=== PATIENT | female | born 1990 | race Caucasian/White ===

== ENCOUNTER → 2016-06-14 | Outpatient (CLI) | payer MEDICAID ==
[~2016-06-14] MED LIST: ACET1TAB86 PO; ACET650T10 PR; AMOX500T PO; CLON.1 PO; CLON.5 PO; CLON0.5T PO; CLOT1CRE23 VAGINAL; FERR325T PO; HYDR1CRE TOP; IBUP-232 PO; IBUP600 PO; ORTH0.35 PO; PERI8.6T PO; POLY255S PO; PRENCAP6 PO; PRENTAB44 PO; RANI150C PO; SUBO8MIS SL; TRICTAB PO; WELL150T PO; ZOFR4TAB PO; ZOLO25TA PO
== END ==
LOC: HPND 11:02
PROVIDERS: ATTEND Family Medicine
DX: O09.30 Supervision of pregnancy with insufficient antenatal care, unspecified trimester (principal)
CPT/HCPCS: 76805

== ENCOUNTER → 2016-07-18 | Outpatient (CLI) | payer MEDICAID ==
[~2016-07-18] MED LIST changes: -ACET650T10 PR; -CLON.1 PO; -HYDR1CRE TOP; -IBUP600 PO; -ORTH0.35 PO; -PERI8.6T PO; -POLY255S PO; -PRENCAP6 PO; -WELL150T PO; -ZOFR4TAB PO
== END ==
LOC: HPND 13:54
PROVIDERS: ATTEND Family Medicine
DX: O40.3XX0 Polyhydramnios, third trimester, not applicable or unspecified (principal); O09.33 Supervision of pregnancy with insufficient antenatal care, third trimester; Z3A.31 31 weeks gestation of pregnancy
CPT/HCPCS: 76816

== ENCOUNTER 2016-07-24 12:48 | Emergency (ER) | payer MEDICAID ==
[~2016-07-24] VITALS: Ht 162.6 cm; Wt 79.0 kg
[~2016-07-24 12:48] MED LIST changes: -ACET1TAB86 PO; -AMOX500T PO; -CLON.5 PO; -CLON0.5T PO; -FERR325T PO; -IBUP-232 PO; -SUBO8MIS SL; -TRICTAB PO; -ZOLO25TA PO
[2016-07-24 12:53] VITALS: BP 96/65; PULSE 80; RESP 16; TEMP 98.3; O2SAT 97
--- NOTE | 2016-07-24 13:06 | PD ---
HPI Chief Complaint: Cold / Flu Symptoms Time Seen by Provider: 13:06 Travel History International Travel<30 days: No Contact w/Intl Traveler<30days: No Traveled to known affect area: No History of Present Illness HPI 25 year old 33 week female presents to the ED for evaluation of 3-4 week history of bilateral ear pain,dulled hearing, clear rhinorrhea, nonproductive cough, sore throat. Patient denies fever or chills, headache, SOB , N, V. She endorses sick contacts, stating that her daughter brought this illness home from daycare. Patient endorses good movement, close follow- up with the [facility] EDUCATIONAL AIDE. She's been treating at home with Afmayur with no improvement of her symptoms. PFSH Past Medical History Hx Anticoagulant Therapy: No Blood Disorders: No Anxiety: Yes Depression: Yes Cancer: No Cardiovascular Problems: No Chemotherapy: No Cerebrovascular Accident: No Diabetes: No Diminished Hearing: No Endocrine: No Gastrointestinal Disorders: No Genitourinary: No Immune Disorder: No Implanted Vascular Access Dvce: No Musculoskeletal: No Neurologic: No Psychiatric: Yes Reproductive: No Respiratory: No Immunizations Current: Yes Radiation Therapy: No ?: LMP: 03/04/16 Menopausal: No : 2 Para: 1 Miscarriage: 1 : 1 Past Surgical History Abdominal Surgery: No Cardiac Surgery: No Ear Surgery: No Endocrine Surgery: No Eye Surgery: No Genitourinary Surgery: No Gynecologic Surgery: No Hysterectomy: No Neurologic Surgery: No Oral Surgery: No Thoracic Surgery: No Other Surgery: No Social History Alcohol Use: No Tobacco Use: Yes (3-4 cigarettes a day during ) Substance Use: No Allergies-Medications (Allergen,Severity, Reaction): Coded Allergies: No Known Allergies (Verified , 07/24/16) Reported Meds & Prescriptions Reported Meds & Active Scripts Active Amoxicillin 500 Mg Tab 500 Mg PO BID 5 Days Review of Systems Except as stated in HPI: all other systems reviewed are Neg Physical Exam Narrative GENERAL: Well-nourished, well-developed white female in no acute distress. SKIN: Warm and dry. HEAD: Normocephalic. Atraumatic. EYES: No scleral icterus. No injection or drainage. PERRLA. EOMI. ENT: Tympanic membranes pearly vazquez without loss of bony landmarks. Left tympanic membrane erythematous, mild bulging. No loss of landmarks. External canals without erythema or exudates bilaterally. Nasal mucosa is moist. Oropharynx mild posterior erythema. No edema or exudate. Airway patent. Uvula midline. NECK: Supple, trachea midline. No JVD or lymphadenopathy. CARDIOVASCULAR: Regular rate and rhythm without murmurs, gallops, or rubs. 2+ DP and radial pulses bilaterally. RESPIRATORY: Breath sounds clear and equal bilaterally. No accessory muscle use. GASTROINTESTINAL: Abdomen gravid, soft, non-tender, nondistended. + Bowel sounds MUSCULOSKELETAL: No cyanosis, or edema. Patient is noted to walk with a normal gait. BACK: Nontender without obvious deformity. No CVA tenderness. Data Data Last Documented VS Vital Signs Date Time Temp Pulse Resp B/P Pulse Ox O2 Delivery O2 Flow Rate FiO2 07/24/16 13:10 18 97 Room Air 07/24/16 12:53 98.3 80 96/65 Orders Group A Rapid Strep Screen (07/24/16 12:59) Strep Culture (Group A) (07/24/16 13:15) MDM Medical Decision Making Medical Screen Exam Complete: Yes Emergency Medical Condition: Yes Differential Diagnosis Pharyngitis versus strep pharyngitis versus otitis media versus otitis externa versus viral syndrome versus other Narrative Course 25 year old 33 week female presents to the ED for evaluation of 3-4 week history of bilateral ear pain,dulled hearing, clear rhinorrhea, nonproductive cough, sore throat. Patient denies fever or chills, headache, SOB , N, V. endorses good movement and close follow-up by the audit clerk. Vitals reviewed. Physical exam reveals a nontoxic-appearing white female in no acute distress. Left tympanic membrane mild to moderately erythematous with mild bulging. No loss of landmarks. External canals without erythema or exudates bilaterally. Oropharynx with mild posterior erythema. No LAD. Rapid strep swab negative. Patient was instructed to discontinue use of Afrin. I educated her about the rebound effects of the medication. She is prescribed a course of amoxicillin, 500 mg twice a day 5 days. She is instructed to take all medication as prescribed, follow up with the [facility] EDUCATIONAL AIDE. She indicated understanding of the instructions and is agreeable to the care plan. The patient is stable and discharged home.. Diagnosis Primary Impression: Left otitis media with effusion Referrals: Apprentice Plant Attendant Patient Instructions: General Instructions, Otitis Media (ED) Additional Instructions: Rest, hydrate. Take all medication as prescribed, even if symptoms resolved. Follow-up with the audit clerk as discussed. Return to the ED for any urgent or emergent medical condition. Med/Other Pt SpecificInfo: Prescription(s) given Scripts Amoxicillin 500 Mg [id number] Mg PO BID 5 Days Ref 0 Prov:Pradip Chi MD 07/24/16 Disposition: 01 DISCHARGE HOME Condition: Stable Indigo Ma Jul 24, 2016 13:06
[2016-07-24] MEDS ORDERED: AMOX500T PO (13:55)
[2016-08-24] MEDS ORDERED: ZOLO25TA PO (11:11)
[2016-08-24] MEDS ORDERED: CLON0.5T PO (11:11)
[2016-08-24] MEDS ORDERED: FERR325T PO (14:25)
[2016-09-19] MEDS ORDERED: ZOLO25TA PO (10:24)
[2016-09-19] MEDS ORDERED: CLON.5 PO (10:24)
== END 2016-07-24 14:05 | disposition home or self-care (01) ==
LOC: PHEFT 12:48
DX: O26.893 Other specified pregnancy related conditions, third trimester (principal); H65.92 Unspecified nonsuppurative otitis media, left ear; R05 Cough; R07.0 Pain in throat; Z72.0 Tobacco use; Z86.59 Personal history of other mental and behavioral disorders; Z3A.33 33 weeks gestation of pregnancy
CPT/HCPCS: 87081; 87880; 99283

== ENCOUNTER 2016-08-03 13:02 | Emergency (ER) | payer MEDICAID ==
[~2016-08-03 13:02] MED LIST changes: +AMOX500T PO; -CLOT1CRE23 VAGINAL; -PRENTAB44 PO; -RANI150C PO
--- NOTE | 2016-08-03 13:50 | PD ---
HPI Chief Complaint concern for ROM Date Seen: Aug 03, 2016 (Timbo Iqbal MD R2) Travel History International Travel<30 Days: No Contact w/Intl Traveler<30Days: No Known Affected Area: No (Timbo Iqbal MD R2) History of Present Illness HPI Ms. Tucker is a 25-year-old at 34 1/7 weeks (PRAMOD 09/13/2016) who presents with concern for rupture membranes. Patient states she arose from seated position yesterday when noticing a clear spot on chair. Patient states this also occurred later that day and this morning. Patient describes quantity of fluid as "quarter-sized". Patient states that fluid was clear in color. Patient states she does not feel that she urinated on herself. Patient does not report vaginal itching or pain. Patient does not report vaginal bleeding. Patient reports normal movement. Patient reports occasional mild abdominal pain which she thinks are Ronald Lizarraga contractions; patient does not report recent change in frequency of is intermittent pain. Patient does not report headache, vision change, shortness of breath, nausea/vomiting, or leg swelling. Review of records: 07/18 US with normal placenta, HARVEY 19.2 (prior US in w/ HARVEY 23), appropriate growth. 1 hr GTT testing elevated. Labs otherwise wnl. Para: 2 : 3 (Timbo Iqbal MD R2) History Past Medical History Narrative Medical Patient reports her GERD controlled with Zantac and Tums; patient does not report other medical history (Timbo Iqbal MD R2) Obstetric History Obstetric History 002 Patient reports 2 prior vaginal deliveries which were full-term (Timbo Iqbal MD R2) Past Surgical History Surgical History: No Previous Surgery (Timbo Iqbal MD R2) Family History Family History: Negative (Timbo Iqbal MD R2) Social History Narrative Social History Per EMR, patient previously tested positive for benzodiazepines and opiates. Patient reports smoking approximately 57 cigarettes a day; she smoked more prior to . (Timbo Iqbal MD R2) Allergies-Medications (Allergen,Severity, Reaction): Coded Allergies: No Known Allergies (Verified , 08/03/16) Home Meds Active Scripts Amoxicillin 500 Mg [id number] Mg PO BID 5 Days Ref 0 Prov:Pradip Chi MD 07/24/16 Review of Systems General / Constitutional: No: Fever, Chills HENT: No: Headaches Cardiovascular: No: Chest Pain or Discomfort Respiratory: No: Short of Breath Gastrointestinal: No: Nausea, Vomiting Genitourinary: No: Dysuria (Timbo Iqbal MD R2) Physical Exam BP 122/64 HR 92 RR 20 T 97.9 Narrative GENERAL: Well-nourished, well-developed patient. SKIN: Warm and dry. Tattoos present HEAD: Normocephalic and atraumatic. EYES: No scleral icterus. No injection or drainage. ENT: No nasal drainage noted. Mucous membranes pink. Airway patent. NECK: Supple, trachea midline. No lymphadenopathy CARDIOVASCULAR: Regular rate and rhythm without murmurs. Normal perfusion. RESPIRATORY: CTAB; normal rate ABDOMEN/GI: Abdomen soft, non-tender, bowel sounds present, no rebound, no guarding Gravid EXTREMITIES: No cyanosis or edema. NEUROLOGICAL: Awake and alert. Motor and sensory function grossly within normal limits. GENITOURINARY: Uterine Contractions: Irritability; no obvious contractions on CTG FHT's: Category: 1 Baseline: 140 Reactive: Y Variability: Moderate Decels: None (Timbo Iqbal MD R2) Data Data Vital Signs Reviewed: Yes (Timbo Iqbal MD R2) MDM Medical Record Reviewed: Yes Narrative Course / MDM 25-year-old at 34 1/7 weeks (PRAMOD 09/13/2016) -Concern for rupture of membranes due to small quantity of clear vaginal fluid not associated with urination -Category 1 rhythm -Patient does not feel irregular contractions Plan: -Continue EFM -We'll check Amnisure to assess for ROM Interval: Amnisure negative Updated plan: -We'll plan for patient to be discharged home with routine follow-up with Dr. Mckeon due to negative Amnisure results and reassuring rhythm. -Will provide patient with GTT and Hep C labs per request prior to upcoming appointment (Timbo Iqbal MD R2) Diagnosis Diagnosis: Primary Impression: Vaginal discharge Additional Impression: 34 weeks gestation of Disposition: 01 DISCHARGE HOME Condition: Stable Referrals: Agustín Mckeon MD R2 1 week Patient Instructions: General Instructions, Movement (ED), Premature Rupture of Membranes (ED) Collaborating MD Comments Discussed care with Dr Chotas, will discharge with followup in FM clinic (Nasreen Hall MD) Timbo Iqbal MD R2 Aug 03, 2016 13:50 Nasreen Hall MD Aug 03, 2016 18:28
[2016-08-24] MEDS ORDERED: ZOLO25TA PO (11:11)
[2016-08-24] MEDS ORDERED: CLON0.5T PO (11:11)
[2016-08-24] MEDS ORDERED: FERR325T PO (14:25)
[2016-09-19] MEDS ORDERED: ZOLO25TA PO (10:24)
[2016-09-19] MEDS ORDERED: CLON.5 PO (10:24)
== END 2016-08-03 14:36 | disposition home or self-care (01) ==
LOC: HOBED 13:02
DX: N89.8 Other specified noninflammatory disorders of vagina (principal); Z3A.34 34 weeks gestation of pregnancy; R10.9 Unspecified abdominal pain
CPT/HCPCS: 59025; 84112

== ENCOUNTER 2016-08-08 08:22 | Observation (INO) | payer MEDICAID ==
[~2016-08-08] VITALS: Ht 162.6 cm; Wt 79.0 kg
[2016-08-08] VITALS (89 sets, daily range): BP systolic 81–133; BP diastolic 45–78; PULSE 82–124; RESP 14–19; TEMP 97.6–98.1; O2SAT 94–100
[2016-08-08] MEDS ORDERED: TRICTAB PO (08:44)
[2016-08-08] MEDS ORDERED: SODIUM CHLORIDE 0.9% FLUSH 10 ML FLUSH IVF PRN (08:45)
[2016-08-08 09:01] LABS: AUTOMATED NEUTROPHIL # 5.5 TH/MM3 (1.8-7.7); BASOPHIL % 0.2 % (0.0-2.0); EOSINOPHIL # 0.1 TH/MM3 (0-0.4); EOSINOPHIL % 0.9 % (0.0-4.0); HEMO FLAGS DIFF FINAL; LYMPH % 25.1 % (9.0-44.0); LYMPHOCYTE # 2.1 TH/MM3 (1.0-4.8); MEAN CELL VOLUME 86.4 FL (80.0-100.0); MEAN CORPUSCULAR HEMOGLOBIN 28.9 PG (27.0-34.0); MEAN CORPUSCULAR HGB CONC 33.5 % (32.0-36.0); MONO % 7.1 % (0.0-8.0); NEUT % 66.7 % (16.0-70.0); PLATELET COUNT 171 TH/MM3 (150-450); RED BLOOD COUNT 4.17 MIL/MM3 (4.00-5.30); RED CELL DISTRIBUTION WIDTH 13.5 % (11.6-17.2); WHITE BLOOD COUNT 8.3 TH/MM3 (4.0-11.0)
[2016-08-08 09:19] LABS: ANION GAP 7 MEQ/L (5-15); AST (GOT) 16 U/L (15-37); BLOOD UREA NITROGEN 6 MG/DL (7-18); CHLORIDE 105 MEQ/L (98-107); GLOMERULAR FILTRATION RATE 109 ML/MIN (>89); POTASSIUM 3.3 MEQ/L (3.5-5.1); SODIUM (NA) 141 MEQ/L (136-145)
[2016-08-08 09:22] LABS: ACETAMINOPHEN LESS THAN 2.0 MCG/ML (10.0-30.0); ALKALINE PHOSPHATASE 146 U/L (45-117); ALT (GPT) 16 U/L (10-53); TOTAL BILIRUBIN ADULT 0.2 MG/DL (0.2-1.0)
--- NOTE | 2016-08-08 09:52 | PD ---
HPI Chief Complaint: OD/ Ingestion Time Seen by Provider: 08:31 Travel History International Travel<30 days: No Contact w/Intl Traveler<30days: No Traveled to known affect area: No History of Present Illness HPI This is a 25-year-old female who presents to the emergency department 35 weeks having taken 10 tablets of Benadryl prior to arrival in order to try to sleep. She said she take 4 initially but that didn't work so then she took 10 total. She took these around 7 AM. She started to feel lightheaded, dizzy, constant, moderate severity, with some nausea associated called 911. She denies trying to hurt herself. She says she has no history of depression. PFSH Past Medical History Hx Anticoagulant Therapy: No Blood Disorders: No Anxiety: Yes Depression: Yes Cancer: No Cardiovascular Problems: No Chemotherapy: No Cerebrovascular Accident: No Diabetes: No Diminished Hearing: No Endocrine: No Gastrointestinal Disorders: No Genitourinary: No Immune Disorder: No Implanted Vascular Access Dvce: No Musculoskeletal: No Neurologic: No Psychiatric: Yes Reproductive: No Respiratory: No Immunizations Current: Yes Radiation Therapy: No Tetanus Vaccination: < 5 Years Influenza Vaccination: Yes ?: Menopausal: No : 3 Para: 2 Miscarriage: 0 : 0 Past Surgical History Abdominal Surgery: No Cardiac Surgery: No Ear Surgery: No Endocrine Surgery: No Eye Surgery: No Genitourinary Surgery: No Gynecologic Surgery: No Hysterectomy: No Neurologic Surgery: No Oral Surgery: No Thoracic Surgery: No Other Surgery: No Social History Alcohol Use: No Tobacco Use: Yes Substance Use: No Allergies-Medications (Allergen,Severity, Reaction): Coded Allergies: No Known Allergies (Verified , 08/03/16) Reported Meds & Prescriptions Reported Meds & Active Scripts Active Reported ( Vit-Ferrous Fumarate) 1 Tab Tab 1 Tab PO DAILY Review of Systems Except as stated in HPI: all other systems reviewed are Neg Physical Exam Narrative GENERAL:Well appearing, no acute distress SKIN: Focused skin assessment warm and dry. HEAD: Atraumatic. Normocephalic. EYES: Pupils are 3 mm, equal and reactive No injection or drainage. ENT: Moist mucous membranes NECK: Trachea midline. CARDIOVASCULAR: Tachycardic. No murmur appreciated. RESPIRATORY: Clear to auscultation. Breath sounds equal bilaterally. GASTROINTESTINAL: Abdomen soft, non-tender, nondistended. Gravid uterus. MUSCULOSKELETAL: No obvious deformities. NEUROLOGICAL: Awake and alert. No obvious cranial nerve deficits. Moving all extremities. PSYCHIATRIC: Appropriate mood and affect; insight and judgment normal. Data Data Last Documented VS Vital Signs Date Time Temp Pulse Resp B/P Pulse Ox O2 Delivery O2 Flow Rate FiO2 08/08/16 08:49 14 98 Room Air 08/08/16 08:27 98.1 105 118/75 Orders Ed Poc Ultrasound (08/08/16 ) Electrocardiogram (08/08/16 08:40) Complete Blood Count With Diff (08/08/16 08:40) Comprehensive Metabolic Panel (08/08/16 08:40) Urinalysis - C+S If Indicated (08/08/16 08:40) Iv Access Insert/Monitor (08/08/16 08:40) Ecg Monitoring (08/08/16 08:40) Oximetry (08/08/16 08:40) Sodium Chloride 0.9% Flush (Ns Flush) (08/08/16 08:45) Call Poison Control (08/08/16 08:40) Drug Screen, Random Urine (08/08/16 08:40) Alcohol (Ethanol) (08/08/16 08:40) Salicylates (Aspirin) (08/08/16 08:40) Tylenol (Acetaminophen) (08/08/16 08:40) Admit Order (Ed Use Only) (08/08/16 09:43) Labs Laboratory Tests Test 08/08/16 08:45 White Blood Count 8.3 TH/MM3 Red Blood Count 4.17 MIL/MM3 Hemoglobin 12.1 GM/DL Hematocrit 36.0 % Mean Corpuscular Volume 86.4 FL Mean Corpuscular Hemoglobin 28.9 PG Mean Corpuscular Hemoglobin 33.5 % Concent Red Cell Distribution Width 13.5 % Platelet Count 171 TH/MM3 Mean Platelet Volume 10.0 FL Neutrophils (%) (Auto) 66.7 % Lymphocytes (%) (Auto) 25.1 % Monocytes (%) (Auto) 7.1 % Eosinophils (%) (Auto) 0.9 % Basophils (%) (Auto) 0.2 % Neutrophils # (Auto) 5.5 TH/MM3 Lymphocytes # (Auto) 2.1 TH/MM3 Monocytes # (Auto) 0.6 TH/MM3 Eosinophils # (Auto) 0.1 TH/MM3 Basophils # (Auto) 0.0 TH/MM3 CBC Comment DIFF FINAL Differential Comment Sodium Level 141 MEQ/L Potassium Level 3.3 MEQ/L Chloride Level 105 MEQ/L Carbon Dioxide Level 29.0 MEQ/L Anion Gap 7 MEQ/L Blood Urea Nitrogen 6 MG/DL Creatinine 0.65 MG/DL Estimat Glomerular Filtration 109 ML/MIN Rate Random Glucose 90 MG/DL Calcium Level 9.2 MG/DL Total Bilirubin 0.2 MG/DL Aspartate Amino Transf 16 U/L (AST/SGOT) Alanine Aminotransferase 16 U/L (ALT/SGPT) Alkaline Phosphatase 146 U/L Total Protein 7.1 GM/DL Albumin 2.9 GM/DL Salicylates Level LESS THAN 1.7 MG/DL Acetaminophen Level LESS THAN 2.0 MCG/ML Ethyl Alcohol Level LESS THAN 3 MG/DL [facility] Medical Decision Making Medical Screen Exam Complete: Yes Emergency Medical Condition: Yes Interpretation(s) Afebrile, tachycardia, normotensive No leukocytosis Mild hypokalemia Salicylates and acetaminophen are negative EKG: Sinus tachycardia with no ST changes and normal intervals Differential Diagnosis Benadryl overdose, anticholinergic toxidrome, distress, electrolyte abnormality, acetaminophen toxicity, salicylate toxicity Narrative Course This is a 25-year-old female who presents to the emergency department after taking 10 tablets of Benadryl. It's unclear if this was an intentional overdose. She says that she was trying to sleep. She was placed on a monitor and an IV was established. She was found to be tachycardic but otherwise well- appearing. EKG was reassuring and labs are reassuring. A bedside ultrasound demonstrates a heart rate of 160 and normal motion. Patient will be transferred up to labor and delivery for close monitoring. Diagnosis Primary Impression: Diphenhydramine overdose of undetermined intent Qualified Code: T45.0X4A - Diphenhydramine overdose of undetermined intent, initial encounter Admitting Information Admitting Physician Requests: Admit Grace Pascual MD Aug 08, 2016 09:52
[2016-08-08 10:11] LABS: BACTERIA, URINE RARE /hpf; BLOOD, URINE NEG (NEG); COMMENT (UR) CULT NOT INDICATED; CULTURE IF INDICATED CULT NOT INDICATED; GLUCOSE,URINE NEG (NEG); KETONE, URINE NEG (NEG); MUCUS URINE FEW /lpf (OCC); NITRITE,URINE NEG (NEG); SQUAMOUS EPITHELIAL CELL URINE 2 /hpf (0-5); URINE COLOR YELLOW (YELLW/STRAW)
[2016-08-08] MEDS ORDERED: SODIUM CHLORIDE 0.9% FLUSH 10 ML FLUSH IV FLUSH PRN (10:45)
[2016-08-08] MEDS ORDERED: ONDANSETRON HCL 4 MG/2 ML VIAL IV PRN (10:45)
--- NOTE | 2016-08-08 10:47 | HHI.HP ---
[facility] Service Family Medicine Primary Care Physician Unknown Admission Diagnosis 35 wks , benadryl overdose Diagnoses: International Travel<30 Days: No Contact w/Intl Traveler<30days: No Known Affected Area: No History of Present Illness Poor historian due to mental state This is a 25-year-old at 35 weeks gestational age being admitted for Benadryl overdose. She reports that she did not sleep well overnight and that this morning she took four Benadryl sleep aid to help her go back to bed, when that did not make her feel sleepy she took 6 more. She says that for usually works. She started to feel lightheaded, dizzy as well as nauseated and decided to call 911. Throughout the interview she was having difficulty keeping her eyes open. She denies any suicidal or homicidal ideation. She says that she has been happy and is not currently feeling depressed. Of note She reports good movement. Denies any contractions. Denies any vaginal bleeding or discharge, and she is not aware of any large gush of fluid. (Seamus Curiel MD R2) Review of Systems ROS Limitations: Clinical Condition, Intoxication, Poor Historian Constitutional: DENIES: Fatigue, Fever, Change in appetite Eyes: DENIES: Blurred vision, Vision loss, Double Vision (eyelids are shaking) Ears, nose, mouth, throat: DENIES: Tinnitus, Hearing loss, Throat pain, Ear Pain, Running Nose Respiratory: DENIES: Cough, Wheezing, Sputum production, Shortness of breath Cardiovascular: DENIES: Chest pain, Lower Extremity Edema Gastrointestinal: COMPLAINS OF: Abdominal pain, Nausea, Vomiting, DENIES: Difficulty Swallowing Genitourinary: DENIES: Abnormal vaginal bleeding, Urinary incontinence, Urgency , Dysuria Musculoskeletal: DENIES: Joint pain, Stiffness, Joint Swelling, Back pain Integumentary: DENIES: Rash, Breast masses, Breast skin changes Hematologic/lymphatic: DENIES: Bruising Neurologic: COMPLAINS OF: Headache, DENIES: Speech Problems, Poor Balance Psychiatric: DENIES: Anxiety, Hallucinations, Suicidal Ideation, Homicidal Ideation (Seamus Curiel MD R2) Past Family Social History Past Medical History Hepatitis C (February 2015) Generalized anxiety disorder History of IV drug use (opiates) Past Surgical History None Reported Medications Reported Meds & Active Scripts Active Reported ( Vit-Ferrous Fumarate) 1 Tab Tab 1 Tab PO DAILY (Seamus Curiel MD R2) Allergies: Coded Allergies: No Known Allergies (Verified , 08/03/16) Active Ordered Medications Current Medications Medications (Trade) Dose Ordered Sig/Milagro Route Start Time Stop Time Status Last Admin (NS Flush) 2 ml BID IV FLUSH 08/08/16 21:00 (NS Flush) 2 ml UNSCH PRN IV FLUSH 08/08/16 10:45 (Zofran Inj) 4 mg Q6H PRN IV 08/08/16 10:45 Family History Noncontributory Social History 2 children Living with boyfriend in [facility]. Supportive relationship. Tob 1/2 PPD no ETOH No longer using Suboxone or IVD. Caffeine intake significant (tea, soda) daily (Seamus Curiel MD R2) Physical Exam Vital Signs Vital Signs Date Time Temp Pulse Resp B/P Pulse Ox O2 Delivery O2 Flow Rate FiO2 08/08/16 08:49 14 98 Room Air 08/08/16 08:32 Room Air 08/08/16 08:27 98.1 105 16 118/75 98 Physical Exam GENERAL: Well-nourished, well-developed patient. Falling asleep during exam, Able answer questions SKIN: Warm and dry. EYES: No scleral icterus. No injection or drainage. ENT: No nasal drainage noted. Mucous membranes pink. Airway patent. NECK: Supple, trachea midline. No lymphadenopathy. CARDIOVASCULAR: Regular rate and rhythm without murmurs, gallops, or rubs. RESPIRATORY: Breath sounds equal bilaterally. No accessory muscle use. ABDOMEN/GI: Abdomen nontender. Gravid to 35 weeks size. Fundal Height: 35 EXTREMITIES: No cyanosis or edema. BACK: Nontender without obvious deformity. No CVA tenderness. NEUROLOGICAL: Awake and alert and oriented 3. Motor and sensory grossly within normal limits. Normal speech. Laboratory Laboratory Tests Test 08/08/16 08/08/16 08:45 09:49 White Blood Count 8.3 Red Blood Count 4.17 Hemoglobin 12.1 Hematocrit 36.0 Mean Corpuscular Volume 86.4 Mean Corpuscular Hemoglobin 28.9 Mean Corpuscular Hemoglobin 33.5 Concent Red Cell Distribution Width 13.5 Platelet Count 171 Mean Platelet Volume 10.0 Neutrophils (%) (Auto) 66.7 Lymphocytes (%) (Auto) 25.1 Monocytes (%) (Auto) 7.1 Eosinophils (%) (Auto) 0.9 Basophils (%) (Auto) 0.2 Neutrophils # (Auto) 5.5 Lymphocytes # (Auto) 2.1 Monocytes # (Auto) 0.6 Eosinophils # (Auto) 0.1 Basophils # (Auto) 0.0 CBC Comment DIFF FINAL Differential Comment Sodium Level 141 Potassium Level 3.3 Chloride Level 105 Carbon Dioxide Level 29.0 Anion Gap 7 Blood Urea Nitrogen 6 Creatinine 0.65 Estimat Glomerular Filtration 109 Rate Random Glucose 90 Calcium Level 9.2 Total Bilirubin 0.2 Aspartate Amino Transf 16 (AST/SGOT) Alanine Aminotransferase 16 (ALT/SGPT) Alkaline Phosphatase 146 Total Protein 7.1 Albumin 2.9 Salicylates Level LESS THAN 1.7 Acetaminophen Level LESS THAN 2.0 Ethyl Alcohol Level LESS THAN 3 Urine Color YELLOW Urine Turbidity CLOUDY Urine pH 8.0 Urine Specific Bern 1.009 Urine Protein NEG Urine Glucose (UA) NEG Urine Ketones NEG Urine Occult Blood NEG Urine Nitrite NEG Urine Bilirubin NEG Urine Urobilinogen LESS THAN 2.0 Urine Leukocyte Esterase NEG Urine RBC 1 Urine WBC 3 Urine Squamous Epithelial 2 Cells Urine Amorphous Sediment MANY Urine Bacteria RARE Urine Mucus FEW Microscopic Urinalysis Comment CULT NOT INDICATED (Seamus Curiel MD R2) Result Diagram: 08/08/16 0845 08/08/1645 Assessment and Plan Assessment and Plan This is a 25-year-old at 35 weeks gestational age being admitted for Benadryl overdose Code Status Full Code Discussed Condition With WDW: Dr. Bates (Seamus Curiel MD R2) Attending Attestation Patient seen and examined. Case reviewed and discussed with the resident team. Agree with plan of care as discussed with me and documented in the resident note. she was seen on admission in the ED. she requires 24 hours of monitoring according to poison control (Zoila Bates MD) Problem List: (1) Diphenhydramine overdose of undetermined intent Status: Acute Plan: Patient reports taking 10 sleep aids this morning, uncertain as to whether they are 25 or 50 mg Benadryl tablets. Have discussed case with poison control, the recommendation is monitoring for 24 hours with frequent vitals and continuous heart tracing. * Admit to observation * Psychiatry consulted, recommendations appreciated * Zofran when necessary nausea and vomiting * Diet nothing by mouth * CBC, BMP ordered for the a.m. * Drug screen ordered: Results pending * NS at 84 mL's per hour (2) 35 weeks gestation of Status: Acute Plan: 35 weeks gestational age Admit to L&D for Continuous heart tracing Monitoring for contractions Vitals every 4 (3) Nutrition, metabolism, and development symptoms Status: Acute Plan: Bed rest with bathroom privileges Monitor electrolytes replace accordingly DVT prophylaxis with SCDs CODE STATUS: Full code Disposition: Anticipate discharge tomorrow (Seamus Curiel MD R2) Problem Qualifiers (1) Diphenhydramine overdose of undetermined intent: Qualified Code: T45.0X4A - Diphenhydramine overdose of undetermined intent, initial encounter Seamus Curiel MD R2 Aug 08, 2016 10:47 Zoila Bates MD Aug 09, 2016 11:17
[2016-08-08] MEDS ORDERED: SODIUM CHLOR 0.9% 1000 ML INJ 1,000 ML IV SCH (11:45)
[2016-08-08] MEDS ORDERED: LACTATED RINGER'S 1000 ML INJ 1,000 ML IV SCH (13:00)
[2016-08-08] MEDS ORDERED: LACTATED RINGER'S 1000 ML INJ 500 ML IV ONE (13:45)
[2016-08-08] MEDS ORDERED: TERBUTALINE INJ 1 MG/ML AMP SQ ONE ×2 (14:00→20:00)
[2016-08-08] MEDS: LACTATED RINGER'S 1000 ML INJ 1,000 ML IV SCH ×2 (14:20→17:07)
--- NOTE | 2016-08-08 14:23 | PD.CONS ---
HPI Chief Complaint benadryl overdose Date Seen: Aug 08, 2016 Time Seen: 14:00 (Arsen Malin MD R1) Travel History International Travel<30 Days: No Contact w/Intl Traveler<30Days: No (Arsen Malin MD R1) History of Present Illness HPI 25 y/o female at 34/6 weeks presents to ED after taking pills of "sleeping aids". She states that she ingested 4 pills this morning after not sleeping well overnight, which she does occasionally to help her sleep. However , they weren't helpful and she proceeded to take 6 more. Began to feel dizzy, lightheaded, nauseated, and weak. Proceeded to call 911 and was brought to the ED. States she only took them to sleep and had no intention of suicide. States she has had no suicidal ideations during this and feels happy. Denies any depression symptoms. Regarding her , she denies any problems during this . She is a patient of Dr. Mckeon at the [facility]. Denies any vaginal bleeding, loss of fluids. Endorses good movement. Stated she started having contractions late morning as she was being admitted. Denies any headaches, changes in vision , leg pain/edema. No dysuria. Has been eating/drinking well. Currently, she states she feels well, slightly drowsy. Para: 2 : 4 (Arsen Malin MD R1) History Past Medical History Narrative Medical Hepatitis C Anxiety Hx of IV drug use (Arsen Malin MD R1) Obstetric History Obstetric History -Hx of miscarriage -Both vaginal deliveries at term (Arsen Malin MD R1) Past Surgical History Surgical History: No Previous Surgery (Arsen Malin MD R1) Family History Family History: Negative (Arsen Malin MD R1) Social History Alcohol Use: No Tobacco Use: Yes Substance Abuse: No (Arsen Malin MD R1) Allergies-Medications (Allergen,Severity, Reaction): Coded Allergies: No Known Allergies (Verified , 08/03/16) Home Meds Reported Medications Vit-Ferrous Fumarate ()1 Tab Tab1 Tab PO DAILY #30 TAB Ref 0 08/08/16 Discontinued Scripts Amoxicillin 500 Mg [id number] Mg PO BID 5 Days Ref 0 Prov:Pradip Chi MD 07/24/16 Review of Systems General / Constitutional: Weight Gain, No: Fever, Chills Eyes: No: Visual changes HENT: No: Headaches, Lightheadedness Cardiovascular: Tachycardia, No: Chest Pain or Discomfort, Edema Respiratory: No: Cough, Short of Breath Gastrointestinal: No: Nausea, Vomiting, Diarrhea, Abdominal Pain, Constipation Genitourinary: No: Urgency, Frequency, Dysuria, Pelvic Pain Skin: No Rash, No Itching Neurologic: No: Weakness, Dizziness Psychiatric: No: Anxiety, Depression (Arsen Malin MD R1) Neurologic: Dizziness (Patient c/o feeling drowsey, dizzy and lightheaded since admission.) (Audra Arauz MD) Physical Exam Vital Signs Date Time Temp Pulse Resp B/P Pulse Ox O2 Delivery O2 Flow Rate FiO2 08/08/16 12:55 17 08/08/16 12:00 107 08/08/16 11:29 115 16 115/70 98 08/08/16 08:49 14 98 Room Air 08/08/16 08:32 Room Air 08/08/16 08:27 98.1 105 16 118/75 98 Narrative GENERAL: Well-nourished, well-developed patient. SKIN: Warm and dry. HEAD: Normocephalic and atraumatic. EYES: No scleral icterus. No injection or drainage. ENT: No nasal drainage noted. Mucous membranes pink. Airway patent. NECK: Supple, trachea midline. No JVD. CARDIOVASCULAR: Regular rate and rhythm without murmurs, gallops, or rubs. RESPIRATORY: Breath sounds equal bilaterally. No accessory muscle use. ABDOMEN/GI: Abdomen soft, non-tender, bowel sounds present, no rebound, no guarding Gravid to 35 weeks size GENITOURINARY: External Genitalia: intact and normal in appearance Dilatation: 1 Effacement: 40 Station: -1 Presentation: vertex Membranes: intact Uterine Contractions: q2-3 minutes FHT's: Category: 1 Baseline: 130 Reactive: yes Variability: moderate Decels: none EXTREMITIES: No cyanosis or edema. BACK: Nontender without obvious deformity. No CVA tenderness. NEUROLOGICAL: Awake and alert. Motor and sensory grossly within normal limits. Five out of 5 muscle strength in all muscle groups. Normal speech. (Arsen Malin MD R1) Narrative Patient with normal responses but clearly "droggy" No abdominal tenderness US: preliminary report Normal HARVEY Normal placenta BPP 8/8 Normal growth (uAdra Arauz MD) Data Data Vital Signs Reviewed: Yes Orders Ed Poc Ultrasound (08/08/16 ) Electrocardiogram (08/08/16 08:40) Complete Blood Count With Diff (08/08/16 08:40) Comprehensive Metabolic Panel (08/08/16 08:40) Urinalysis - C+S If Indicated (08/08/16 08:40) Iv Access Insert/Monitor (08/08/16 08:40) Oximetry (08/08/16 08:40) Sodium Chloride 0.9% Flush (Ns Flush) (08/08/16 08:45) Call Poison Control (08/08/16 08:40) Drug Screen, Random Urine (08/08/16 08:40) Alcohol (Ethanol) (08/08/16 08:40) Salicylates (Aspirin) (08/08/16 08:40) Tylenol (Acetaminophen) (08/08/16 08:40) Admit Order (Ed Use Only) (08/08/16 09:43) Diet Regular Basic (08/08/16 Lunch) Vital Signs (Adult) [id number] AWAKE (08/08/16 10:40) Heart (08/08/16 10:40) Activity Bed Rest With Brp (08/08/16 10:40) Complete Blood Count With Diff (08/09/16 06:00) Basic Metabolic Panel (Bmp) (08/09/16 06:00) Sodium Chloride 0.9% Flush (Ns Flush) (08/08/16 21:00) Sodium Chloride 0.9% Flush (Ns Flush) (08/08/16 10:45) Ondansetron Inj (Zofran Inj) (08/08/16 10:45) Place In Observation (08/08/16 11:10) Physician Name Changes (08/08/16 ) Consult Obstetrics (08/08/16 ) (Hub Use Only)Inp Phy Cons/Ref (08/08/16 ) Sodium Chlor 0.9% 1000 Ml Inj (Ns 1000 M (08/08/16 11:45) Scd Bilateral/Knee High DANIELLA.QSHIFT (08/08/16 11:36) Consult Psychiatry (08/08/16 ) (Hub Use Only)Inp Phy Cons/Ref (08/08/16 ) Ob/Psych Drug Screen, Urine (08/08/16 12:18) Lactated Ringer's 1000 Ml Inj (Lr 1000 M (08/08/16 13:00) Electrocardiogram (08/08/16 ) Lactated Ringer's 1000 Ml Inj (Lr 1000 M (08/08/16 13:45) Lactated Ringer's 1000 Ml Inj (Lr 1000 M (08/08/16 14:00) Terbutaline Inj (Brethine Inj) (08/08/16 14:00) Labs Laboratory Tests Test 08/08/16 08/08/16 08:45 09:49 White Blood Count 8.3 Red Blood Count 4. Hemoglobin 12.1 Hematocrit 36.0 Mean Corpuscular Volume 86.4 Mean Corpuscular Hemoglobin 28.9 Mean Corpuscular Hemoglobin 33.5 Concent Red Cell Distribution Width 13.5 Platelet Count 171 Mean Platelet Volume 10.0 Neutrophils (%) (Auto) 66.7 Lymphocytes (%) (Auto) 25.1 Monocytes (%) (Auto) 7.1 Eosinophils (%) (Auto) 0.9 Basophils (%) (Auto) 0.2 Neutrophils # (Auto) 5.5 Lymphocytes # (Auto) 2.1 Monocytes # (Auto) 0.6 Eosinophils # (Auto) 0.1 Basophils # (Auto) 0.0 CBC Comment DIFF FINAL Differential Comment Sodium Level 141 Potassium Level 3.3 Chloride Level 105 Carbon Dioxide Level 29.0 Anion Gap 7 Blood Urea Nitrogen 6 Creatinine 0.65 Estimat Glomerular Filtration 109 Rate Random Glucose 90 Calcium Level 9.2 Total Bilirubin 0.2 Aspartate Amino Transf 16 (AST/SGOT) Alanine Aminotransferase 16 (ALT/SGPT) Alkaline Phosphatase 146 Total Protein 7.1 Albumin 2.9 Salicylates Level LESS THAN 1.7 Acetaminophen Level LESS THAN 2.0 Ethyl Alcohol Level LESS THAN 3 Urine Color YELLOW Urine Turbidity CLOUDY Urine pH 8.0 Urine Specific [place] 1.009 Urine Protein NEG Urine Glucose (UA) NEG Urine Ketones NEG Urine Occult Blood NEG Urine Nitrite NEG Urine Bilirubin NEG Urine Urobilinogen LESS THAN 2.0 Urine Leukocyte Esterase NEG Urine RBC 1 Urine WBC 3 Urine Squamous Epithelial 2 Cells Urine Amorphous Sediment MANY Urine Bacteria RARE Urine Mucus FEW Microscopic Urinalysis Comment CULT NOT INDICATED (Arsen Malin MD R1) Vital Signs Reviewed: Yes (Audra Arauz MD) [facility] Medical Record Reviewed: Yes Interpretation(s) 25 y/o female at 34/6 weeks presents to ED due to benadryl overdose. OB was consulted for evaluation of third trimester . Pt has history Hepatitis C, drug abuse, and anxiety. Pt denies any suicidal ideation. Negative for vaginal bleeding, loss of fluids. Endorses movement. Endorses contractions that started around noon today. heart rate stable around 130s , reactive strip. Contractions are occurring q2-3 minutes regularly, minimally painful per patient. Cervical exam: /-. Clinical exam is significant for maternal tachycardia around 115. IUP, 34 weeks w/ regular contractions - Continuous FHT - IV fluids - Dose x1 of terbutaline for tocolysis, need to be reserved with continued doses due to maternal tachycardia. - GC/CH urine PCR, can cause early contractions - Ultrasound to evaluate baby, HARVEY, growth - Monitor vitals Benadryl overdose - Management per medical team - Continue IV fluids - UDS - Psychiatry consult sdw Dr. Arauz Admitting diagnosis: 35 wks , benadryl overdose (Arsen Malin MD R1 ) Attending Attestation 25 yo @ 34w6d. HD #1 -Medication Overdose Patient admitted to for medication overdose. Patient took 250mg of " sleeping aid" or generic Benadryl after which she has been dizzy, lightheaded and feeling sluggish. Symptoms persistent. Mild maternal tachycardia which apparently can be from the Benadryl. Excretion hepatic, but at large dosage will be renal as well. IV hydration. Normal LFTs and Cr on CMP. Acidification of urine as indicated. Unclear at to motive for taking this many pills at this time. Patient also using Benzodiazepines, last take 3 days ago. Psychiatric consultation pending. - UC without PTL UC noted on monitoring. IV hydration was initiated. Resolved after a single dosage of Terbutaline. Maternal tachycardia was stable. Now only occasional UC noted. Continuous monitoring at this time. CAT I FHT (Audra Arauz MD) Arsen Malin MD R1 Aug 08, 2016 14:23 Audra Arauz MD Aug 08, 2016 18:59
[2016-08-08 16:19] LABS: AMPHETAMINE, URINE NEG (NEG); BARBITURATES, URINE NEG (NEG); COCAINE, URINE NEG (NEG)
[2016-08-08 18:38] LABS: CHLAMYDIA PCR NOT DETECTED (NOT DETECT); NEISSERIA PCR NOT DETECTED (NOT DETECT)
--- NOTE | 2016-08-08 19:02 | EKG ---
Date Performed: 08/08/2016 Time Performed: 11:25:06 PTAGE: 25 years EKG: SINUS TACHYCARDIA INCOMPLETE RIGHT BUNDLE BRANCH BLOCK ABNORMAL RHYTHM ECG Since PREVIOUS TRACING , no significant change noted PREVIOUS TRACIN08/08/2016 08.52 DOCTOR: Irena Ragsdale Interpretating Date/Time 08/08/2016 19:01:26
--- NOTE | 2016-08-08 19:55 | EKG ---
Date Performed: 08/08/2016 Time Performed: 08:52:22 PTAGE: 25 years EKG: SINUS TACHYCARDIA ABNORMAL RHYTHM ECG Since PREVIOUS TRACING , the patient is now tachycardic PREVIOUS TRACIN05/09/2009 09.00 DOCTOR: Irena Ragsdale Interpretating Date/Time 08/13/2016 08:51:06
[2016-08-08] MEDS ORDERED: SODIUM CHLORIDE 0.9% FLUSH 10 ML FLUSH IV FLUSH SCH (21:00)
[2016-08-09 03:38] VITALS: RESP 16
[2016-08-09 03:39] VITALS: BP 93/43; PULSE 73
[2016-08-09 06:00] LABS: AUTOMATED NEUTROPHIL # 7.8 TH/MM3 (1.8-7.7); BASOPHIL % 0.2 % (0.0-2.0); EOSINOPHIL % 0.4 % (0.0-4.0); HEMATOCRIT 31.1 % (35.0-46.0); HEMO FLAGS DIFF FINAL; LYMPH % 26.5 % (9.0-44.0); LYMPHOCYTE # 3.2 TH/MM3 (1.0-4.8); MEAN CELL VOLUME 86.2 FL (80.0-100.0); MEAN CORPUSCULAR HEMOGLOBIN 29.1 PG (27.0-34.0); MEAN CORPUSCULAR HGB CONC 33.8 % (32.0-36.0); MONO % 7.6 % (0.0-8.0); NEUT % 65.3 % (16.0-70.0); PLATELET COUNT 172 TH/MM3 (150-450); RED BLOOD COUNT 3.61 MIL/MM3 (4.00-5.30); RED CELL DISTRIBUTION WIDTH 13.6 % (11.6-17.2); WHITE BLOOD COUNT 11.9 TH/MM3 (4.0-11.0)
[2016-08-09 06:36] LABS: POTASSIUM 3.4 MEQ/L (3.5-5.1)
[2016-08-09 09:00] VITALS: RESP 17; TEMP 98.2
--- NOTE | 2016-08-09 09:41 | PD.OB.ANTE ---
Subjective Interval History Pt lying in bed this morning, states feeling better this morning. Denies any issues overnight. States the contractions have lessened in frequency and severity. Denies any pain this morning. Denies vaginal bleeding, loss of fluids. Endorses good movement. Upon further discussion, pt states she had no intention to harm herself and continues to deny any suicidal ideations. She does endorse using some opioids and xanax this weekend. She openly endorses use of these medications occasionally, but does not feel that she is at risk for relapsing. Antepartum ROS: Reports: movement normal, Contractions, Denies: New complaints, Loss of fluid, Vaginal bleeding Objective Vital Signs Vital Signs Date Time Temp Pulse Resp B/P Pulse Ox O2 Delivery O2 Flow Rate FiO2 08/09/16 03:39 73 93/43 08/09/16 03:38 16 08/08/16 23:22 84 81/45 08/08/16 23:21 98.0 16 08/08/16 19:55 82 116/62 08/08/16 19:55 97.6 18 08/08/16 19:45 95 08/08/16 18:59 88 113/65 08/08/16 18:58 17 08/08/16 18:55 95 08/08/16 18:55 87 08/08/16 18:50 90 95 08/08/16 18:45 94 96 08/08/16 18:40 92 95 08/08/16 18:35 89 95 08/08/16 18:30 89 95 08/08/16 18:25 90 95 08/08/16 18:20 88 95 08/08/16 18:15 92 94 08/08/16 18:10 100 95 08/08/16 18:00 103 98 08/08/16 17:55 106 98 08/08/16 17:50 100 08/08/16 17:50 98 08/08/16 17:45 98 08/08/16 17:45 105 08/08/16 17:40 98 08/08/16 17:40 103 08/08/16 17:35 98 08/08/16 17:35 102 08/08/16 17:30 107 08/08/16 17:30 99 08/08/16 17:25 103 08/08/16 17:25 98 08/08/16 17:20 93 08/08/16 17:20 100 08/08/16 17:15 98 97 08/08/16 17:10 103 08/08/16 17:10 103 123/78 08/08/16 17:10 99 08/08/16 17:09 17 08/08/16 17:09 98.0 08/08/16 16:38 17 08/08/16 16:35 115 08/08/16 16:30 113 08/08/16 16:25 114 08/08/16 16:20 116 08/08/16 16:15 114 08/08/16 16:10 115 08/08/16 16:05 114 08/08/16 16:00 110 08/08/16 15:55 114 96 08/08/16 15:50 123 08/08/16 15:50 97 08/08/16 15:45 120 08/08/16 15:45 96 08/08/16 15:44 19 08/08/16 15:40 96 08/08/16 15:40 116 08/08/16 15:35 117 08/08/16 15:35 97 08/08/16 15:30 98 08/08/16 15:30 121 08/08/16 15:25 118 08/08/16 15:25 97 08/08/16 15:20 97 08/08/16 15:20 119 08/08/16 15:15 97 08/08/16 15:15 117 08/08/16 15:10 98 08/08/16 15:10 123 08/08/16 15:05 121 08/08/16 15:05 98 08/08/16 15:04 114 132/70 08/08/16 14:49 18 08/08/16 14:40 123 08/08/16 14:40 96 08/08/16 14:35 95 08/08/16 14:35 117 08/08/16 14:30 116 08/08/16 14:30 111 133/65 08/08/16 14:30 95 08/08/16 14:28 105 127/72 08/08/16 14:20 97 08/08/16 14:20 106 08/08/16 14:15 96 08/08/16 14:15 99 08/08/16 14:10 119 08/08/16 14:10 95 08/08/16 14:00 113 08/08/16 14:00 98.1 08/08/16 14:00 98 08/08/16 13:55 112 08/08/16 13:55 97 08/08/16 13:50 98 08/08/16 13:50 113 08/08/16 13:45 100 08/08/16 13:45 111 114/52 08/08/16 13:45 98 08/08/16 13:40 98 08/08/16 13:40 112 08/08/16 13:35 116 08/08/16 13:35 98 08/08/16 13:30 119 123/67 08/08/16 13:30 112 08/08/16 13:30 98 08/08/16 13:25 116 08/08/16 13:25 98 08/08/16 13:20 112 08/08/16 13:20 97 08/08/16 13:15 99 08/08/16 13:15 108 08/08/16 13:15 124 123/67 08/08/16 13:10 109 08/08/16 13:10 98 08/08/16 13:07 113 123/58 08/08/16 13:05 106 08/08/16 13:05 97 08/08/16 13:00 109 08/08/16 13:00 97 08/08/16 12:55 113 98 08/08/16 12:55 17 08/08/16 12:50 120 99 08/08/16 12:45 109 98 08/08/16 12:40 115 98 08/08/16 12:35 109 97 08/08/16 12:30 107 98 08/08/16 12:25 102 98 08/08/16 12:20 102 98 08/08/16 12:15 106 98 08/08/16 12:10 111 98 08/08/16 12:05 111 98 08/08/16 12:00 107 08/08/16 12:00 98 08/08/16 11:55 112 08/08/16 11:51 106 119/69 08/08/16 11:29 115 16 115/70 98 Lab & Micro Results Test 08/08/16 08/09/16 09:49 04:43 Urine Color YELLOW Urine Turbidity CLOUDY Urine pH 8.0 Urine Specific [place] 1.009 Urine Protein NEG mg/dL Urine Glucose (UA) NEG mg/dL Urine Ketones NEG mg/dL Urine Occult Blood NEG Urine Nitrite NEG Urine Bilirubin NEG Urine Urobilinogen LESS THAN 2.0 MG/DL Urine Leukocyte Esterase NEG Urine RBC 1 /hpf Urine WBC 3 /hpf Urine Squamous Epithelial 2 /hpf Cells Urine Amorphous Sediment MANY Urine Bacteria RARE /hpf Urine Mucus FEW /lpf Microscopic Urinalysis Comment CULT NOT INDICATED Urine Opiates Screen NEG Urine Barbiturates Screen NEG Urine Amphetamines Screen NEG Urine Benzodiazepines Screen POS Urine Cocaine Screen NEG Urine Cannabinoids Screen NEG Chlamydia trachomatis DNA NOT DETECTED (PCR) Neisseria gonorrhoeae DNA NOT DETECTED (PCR) White Blood Count 11.9 TH/MM3 Red Blood Count 3.61 MIL/MM3 Hemoglobin 10.5 GM/DL Hematocrit 31.1 % Mean Corpuscular Volume 86.2 FL Mean Corpuscular Hemoglobin 29.1 PG Mean Corpuscular Hemoglobin 33.8 % Concent Red Cell Distribution Width 13.6 % Platelet Count 172 TH/MM3 Mean Platelet Volume 10.5 FL Neutrophils (%) (Auto) 65.3 % Lymphocytes (%) (Auto) 26.5 % Monocytes (%) (Auto) 7.6 % Eosinophils (%) (Auto) 0.4 % Basophils (%) (Auto) 0.2 % Neutrophils # (Auto) 7.8 TH/MM3 Lymphocytes # (Auto) 3.2 TH/MM3 Monocytes # (Auto) 0.9 TH/MM3 Eosinophils # (Auto) 0.0 TH/MM3 Basophils # (Auto) 0.0 TH/MM3 CBC Comment DIFF FINAL Differential Comment Sodium Level 141 MEQ/L Potassium Level 3.4 MEQ/L Chloride Level 108 MEQ/L Carbon Dioxide Level 25.0 MEQ/L Anion Gap 8 MEQ/L Blood Urea Nitrogen 8 MG/DL Creatinine 0.48 MG/DL Estimat Glomerular Filtration 155 ML/MIN Rate Random Glucose 73 MG/DL Calcium Level 8.2 MG/DL Physical Exam GENERAL: Well-nourished, well-developed patient. CARDIOVASCULAR: Regular rate and rhythm without murmurs, gallops, or rubs. RESPIRATORY: Breath sounds equal bilaterally. No accessory muscle use. ABDOMEN/GI: Abdomen soft, non-tender. Gravid to 35 weeks GENITOURINARY: Uterine Contractions: occasional FHT's: Category: 1 Baseline: 135 Reactive: yes Variability: moderate Decels: none EXTREMITIES: No cyanosis or edema, non-tender, without signs of DVT. Assessment and Plan Assessment and Plan 25 y/o female at 35 weeks presents to ED due to benadryl overdose. Experiencing regular contractions on day of admission, improved. Vitals stable. Category 1 FHT, with only occasional contractions UA negative. GC/CH negative UDS positive for benzodiazepines, pt endorses use of xanax this weekend Ultrasound reassuring, wnl IUP, 35 weeks - Continuous FHT - IV fluids - s/p 2 doses of terbutaline; contractions have decreased - Monitor vitals - Continue care Benadryl overdose - Continue IV fluids - Psychiatry consulted - Discussed case with Dr. Campos, who talked with patient; states she has good insight into her condition - At this time, he recommends starting longer-acting anxiolytics for pt, instead of using xanax - Discussed possibility of suboxone, but pt not a candidate due to infrequent use of medications Arsen Malin MD R1 Aug 09, 2016 09:41
--- NOTE | 2016-08-09 11:00 | HHI.HP ---
[facility] Service Family Medicine Primary Care Physician Unknown Admission Diagnosis 35 wks , benadryl overdose Diagnoses: (1) Diphenhydramine overdose of undetermined intent Diagnosis: Principal (2) 35 weeks gestation of Diagnosis: Principal (3) Nutrition, metabolism, and development symptoms Diagnosis: Principal International Travel<30 Days: No Contact w/Intl Traveler<30days: No History of Present Illness Ms Tucker is a 25-year-old at 35 weeks gestational age being admitted for Benadryl overdose. She reports that she did not sleep well overnight and that this morning she took four Benadryl sleep aid to help her go back to bed, when that did not make her feel sleepy she took 6 more. She says that for usually works. She started to feel lightheaded, dizzy as well as nauseated and decided to call 911. Throughout the interview on admission she was having difficulty keeping her eyes open. She denies any suicidal or homicidal ideation. She says that she has been happy and is not currently feeling depressed. Today, she is alert and conversant and feels back to normal. Her Benadryl has a short half life so it is out of her system at this time. Of note She reports good movement. She complained of some contractions and she was monitored for these and does not need further OB care right now. Denies any vaginal bleeding or discharge, and she is not aware of any large gush of fluid. She is ready to go home today. She was cautioned not to take the OTC sleep aid especially at those high doses. She took 2 30 mg "roxys" and 2 2mg Xanax on Saturday and is seen at [facility] for the drug abstinence program already because of previous problems with substance abuse and knows this is detrimental to her health and her baby's health. Review of Systems Other ROS Limitations: Clinical Condition, Intoxication, Poor Historian Constitutional: DENIES: Fatigue, Fever, Change in appetite Eyes: DENIES: Blurred vision, Vision loss, Double Vision (eyelids are shaking) Ears, nose, mouth, throat: DENIES: Tinnitus, Hearing loss, Throat pain, Ear Pain, Running Nose Respiratory: DENIES: Cough, Wheezing, Sputum production, Shortness of breath Cardiovascular: DENIES: Chest pain, Lower Extremity Edema Gastrointestinal: COMPLAINS OF: Abdominal pain, Nausea, Vomiting, DENIES: Difficulty Swallowing Genitourinary: DENIES: Abnormal vaginal bleeding, Urinary incontinence, Urgency , Dysuria Musculoskeletal: DENIES: Joint pain, Stiffness, Joint Swelling, Back pain Integumentary: DENIES: Rash, Breast masses, Breast skin changes Hematologic/lymphatic: DENIES: Bruising Neurologic: COMPLAINS OF: Headache, DENIES: Speech Problems, Poor Balance Psychiatric: DENIES: Anxiety, Hallucinations, Suicidal Ideation, Homicidal Ideation Past Family Social History Past Medical History Hepatitis C (February 2015) Generalized anxiety disorder History of IV drug use (opiates) Past Surgical History None Allergies: Coded Allergies: No Known Allergies (Verified , 08/03/16) Family History Noncontributory Social History 2 children Living with boyfriend in [facility]. Supportive relationship. Tob 1/2 PPD no ETOH No longer using Suboxone or IVD. Caffeine intake significant (tea, soda) daily Physical Exam Vital Signs Vital Signs Date Time Temp Pulse Resp B/P Pulse Ox O2 Delivery O2 Flow Rate FiO2 08/09/16 09:00 98.2 17 08/09/16 03:39 73 93/43 08/09/16 03:38 16 08/08/16 23:22 84 81/45 08/08/16 23:21 98.0 16 08/08/16 19:55 82 116/62 08/08/16 19:55 97.6 18 08/08/16 19:45 95 08/08/16 18:59 88 113/65 08/08/16 18:58 17 08/08/16 18:55 95 08/08/16 18:55 87 08/08/16 18:50 90 95 08/08/16 18:45 94 96 08/08/16 18:40 92 95 08/08/16 18:35 89 95 08/08/16 18:30 89 95 08/08/16 18:25 90 95 08/08/16 18:20 88 95 08/08/16 18:15 92 94 08/08/16 18:10 100 95 08/08/16 18:00 103 98 08/08/16 17:55 106 98 08/08/16 17:50 100 08/08/16 17:50 98 08/08/16 17:45 98 08/08/16 17:45 105 08/08/16 17:40 98 08/08/16 17:40 103 08/08/16 17:35 98 08/08/16 17:35 102 08/08/16 17:30 107 08/08/16 17:30 99 08/08/16 17:25 103 08/08/16 17:25 98 08/08/16 17:20 93 08/08/16 17:20 100 08/08/16 17:15 98 97 08/08/16 17:10 103 08/08/16 17:10 103 123/78 08/08/16 17:10 99 08/08/16 17:09 17 08/08/16 17:09 98.0 08/08/16 16:38 17 08/08/16 16:35 115 08/08/16 16:30 113 08/08/16 16:25 114 08/08/16 16:20 116 08/08/16 16:15 114 08/08/16 16:10 115 08/08/16 16:05 114 08/08/16 16:00 110 08/08/16 15:55 114 96 08/08/16 15:50 123 08/08/16 15:50 97 08/08/16 15:45 120 08/08/16 15:45 96 08/08/16 15:44 19 08/08/16 15:40 96 08/08/16 15:40 116 08/08/16 15:35 117 08/08/16 15:35 97 08/08/16 15:30 98 08/08/16 15:30 121 08/08/16 15:25 118 08/08/16 15:25 97 08/08/16 15:20 97 08/08/16 15:20 119 08/08/16 15:15 97 08/08/16 15:15 117 08/08/16 15:10 98 08/08/16 15:10 123 08/08/16 15:05 121 08/08/16 15:05 98 08/08/16 15:04 114 132/70 08/08/16 14:49 18 08/08/16 14:40 123 08/08/16 14:40 96 08/08/16 14:35 95 08/08/16 14:35 117 08/08/16 14:30 116 08/08/16 14:30 111 133/65 08/08/16 14:30 95 08/08/16 14:28 105 127/72 08/08/16 14:20 97 08/08/16 14:20 106 08/08/16 14:15 96 08/08/16 14:15 99 08/08/16 14:10 119 08/08/16 14:10 95 08/08/16 14:00 113 08/08/16 14:00 98.1 08/08/16 14:00 98 08/08/16 13:55 112 08/08/16 13:55 97 08/08/16 13:50 98 08/08/16 13:50 113 08/08/16 13:45 100 08/08/16 13:45 111 114/52 08/08/16 13:45 98 08/08/16 13:40 98 08/08/16 13:40 112 08/08/16 13:35 116 08/08/16 13:35 98 08/08/16 13:30 119 123/67 08/08/16 13:30 112 08/08/16 13:30 98 08/08/16 13:25 116 08/08/16 13:25 98 08/08/16 13:20 112 08/08/16 13:20 97 08/08/16 13:15 99 08/08/16 13:15 108 08/08/16 13:15 124 123/67 08/08/16 13:10 109 08/08/16 13:10 98 08/08/16 13:07 113 123/58 08/08/16 13:05 106 08/08/16 13:05 97 08/08/16 13:00 109 08/08/16 13:00 97 08/08/16 12:55 113 98 08/08/16 12:55 17 08/08/16 12:50 120 99 08/08/16 12:45 109 98 08/08/16 12:40 115 98 08/08/16 12:35 109 97 08/08/16 12:30 107 98 08/08/16 12:25 102 98 08/08/16 12:20 102 98 08/08/16 12:15 106 98 08/08/16 12:10 111 98 08/08/16 12:05 111 98 08/08/16 12:00 107 08/08/16 12:00 98 08/08/16 11:55 112 08/08/16 11:51 106 119/69 08/08/16 11:29 115 16 115/70 98 Physical Exam GENERAL: Well-nourished, well-developed patient. Able answer questions this am SKIN: Warm and dry. EYES: No scleral icterus. No injection or drainage. ENT: No nasal drainage noted. Mucous membranes pink. Airway patent. NECK: Supple, trachea midline. No lymphadenopathy. CARDIOVASCULAR: Regular rate and rhythm without murmurs, gallops, or rubs. RESPIRATORY: Breath sounds equal bilaterally. No accessory muscle use. ABDOMEN/GI: Abdomen nontender. Gravid to 35 weeks size. Fundal Height: 35 EXTREMITIES: No cyanosis or edema. BACK: Nontender without obvious deformity. No CVA tenderness. NEUROLOGICAL: Awake and alert and oriented 3. Motor and sensory grossly within normal limits. Normal speech. Laboratory Laboratory Tests Test 08/09/16 04:43 White Blood Count 11.9 Red Blood Count 3.61 Hemoglobin 10.5 Hematocrit 31.1 Mean Corpuscular Volume 86.2 Mean Corpuscular Hemoglobin 29.1 Mean Corpuscular Hemoglobin 33.8 Concent Red Cell Distribution Width 13.6 Platelet Count 172 Mean Platelet Volume 10.5 Neutrophils (%) (Auto) 65.3 Lymphocytes (%) (Auto) 26.5 Monocytes (%) (Auto) 7.6 Eosinophils (%) (Auto) 0.4 Basophils (%) (Auto) 0.2 Neutrophils # (Auto) 7.8 Lymphocytes # (Auto) 3.2 Monocytes # (Auto) 0.9 Eosinophils # (Auto) 0.0 Basophils # (Auto) 0.0 CBC Comment DIFF FINAL Differential Comment Sodium Level 141 Potassium Level 3.4 Chloride Level 108 Carbon Dioxide Level 25.0 Anion Gap 8 Blood Urea Nitrogen 8 Creatinine 0.48 Estimat Glomerular Filtration 155 Rate Random Glucose 73 Calcium Level 8.2 Result Diagram: 08/09/16 0443 08/09/16 044 Assessment and Plan Assessment and Plan This is a 25-year-old at 35 weeks gestational age admitted for Benadryl overdose will go home today and follow up with her Dr Salazar Problem List: (1) Diphenhydramine overdose of undetermined intent Status: Acute Plan: Patient reports taking 10 sleep aids , probably 25 mg Benadryl tablets. Have discussed case with poison control, the recommendation is monitoring for 24 hours with frequent vitals and continuous heart tracing. * Admit to observation * Psychiatry consulted, recommendations appreciated. She will have treatment for anxiety. not suicidal * Zofran when necessary nausea and vomiting * Diet- eating now * CBC, BMP ordered for the a.m. * Drug screen ordered: Results pending * NS at 84 mL's per hour (2) 35 weeks gestation of Status: Acute Plan: 35 weeks gestational age Admit to L&D for Continuous heart tracing Monitoring for contractions Vitals every 4 (3) Nutrition, metabolism, and development symptoms Status: Acute Plan: Bed rest with bathroom privileges Monitor electrolytes replace accordingly DVT prophylaxis with SCDs CODE STATUS: Full code Disposition: home today Problem Qualifiers (1) Diphenhydramine overdose of undetermined intent: Qualified Code: T45.0X4A - Diphenhydramine overdose of undetermined intent, initial encounter Zoila Bates MD Aug 09, 2016 11:00
[2016-08-09] MEDS ORDERED: ZOLO25TA PO (11:57)
--- NOTE | 2016-08-09 11:59 | HHI.DCPOC ---
Discharge Care Plan Diagnosis: (1) 35 weeks gestation of (2) Diphenhydramine overdose Goals to Promote Your Health * To prevent worsening of your condition and complications * To maintain your health at the optimal level Directions to Meet Your Goals Take your medications as prescribed Follow your dietary instruction Follow activity as directed Keep your appointments as scheduled Take your immunizations and boosters as scheduled If your symptoms worsen call your PCP, if no PCP go to Urgent Care Center or Emergency Room Smoking is Dangerous to Your Health. Avoid second hand smoke Call the 24-hour hour crisis hotline for domestic abuse at Xiomara Moreno MD R1 Aug 09, 2016 11:59
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
[2016-08-14 12:50] LABS: HYDROMORPHONE U POS (NEG)
[2016-08-14 12:52] LABS: HEROIN (6-ACETYLMORPHINE) UR NEG (NEG); OBMETHADONE UR NEG (NEG); PHENCYCLIDINE URINE NEG (NEG)
[2016-08-14 12:53] LABS: BATH SALTS (MDPV) UR NEG (NEG); ECSTASY (MDMA) UR NEG (NEG); GABAPENTIN UR NEG (NEG); K2 SPICE UR NEG (NEG); OXYCODONE (PERCODAN) NEG (NEG)
[2016-08-24] MEDS ORDERED: ZOLO25TA PO (11:11)
[2016-08-24] MEDS ORDERED: CLON0.5T PO (11:11)
[2016-08-24] MEDS ORDERED: FERR325T PO (14:25)
[2016-09-19] MEDS ORDERED: CLON.5 PO (10:24)
[2016-09-19] MEDS ORDERED: ZOLO25TA PO (10:24)
== END 2016-08-09 15:14 | disposition home or self-care (01) ==
LOC: NEPC 08:22 → INTOOBSV 09:44 → NEDA 09:44 → H2EA 11:47
PROVIDERS: ADMIT Family Medicine; ATTEND Family Medicine
DX: O9A.213 Injury, poisoning and certain other consequences of external causes complicating pregnancy, third trimester (principal); T45.0X1A Poisoning by antiallergic and antiemetic drugs, accidental (unintentional), initial encounter; O99.343 Other mental disorders complicating pregnancy, third trimester; F41.1 Generalized anxiety disorder; R00.0 Tachycardia, unspecified; Z3A.35 35 weeks gestation of pregnancy
CPT/HCPCS: 76816; 80048; 80053; 80307; 81001; 85025; 87491; 87591; 93005; 99285; G0378; G0481; J2405; J3105; J7120

== ENCOUNTER 2016-09-07 22:48 | Emergency (ER) | payer MEDICAID ==
[~2016-09-07 22:48] MED LIST changes: -AMOX500T PO; +CLON0.5T PO; +FERR325T PO; +TRICTAB PO; +ZOLO25TA PO
[2016-09-07 23:15] VITALS: TEMP 98
--- NOTE | 2016-09-08 | PD ---
HPI Chief Complaint ? Leakage of fluid Date Seen: September 07, 2016 Travel History International Travel<30 Days: No Contact w/Intl Traveler<30Days: No Known Affected Area: No History of Present Illness HPI This is a 25y/o at 39w1d who presented to the routine OB visit today with ?LOF yesterday after intercourse. She was instructed to come in for evaluation but states she had other appointments today. Pt denies vaginal bleeding, contractions or further leakage of fluid with reports of active movements. care with Family Practice resident clinic, care complicated by: 1. h/o IVDA, Hep C status currently being worked up 2. Tobacco abuse 5 cigarettes/day 3. Benadryl overdose in the Para: 2 : 4 History Past Medical History Narrative Medical Hepatitis C Obstetric History Obstetric History 04/03/2008 40w Female [id number] 04/21/2015 39w Female [id number] 2006 sab 10 weeks Past Surgical History Surgical History: No Previous Surgery Family History Family History: Negative Social History Alcohol Use: No Tobacco Use: Yes (5 cigarettes a day) Substance Abuse: Yes (h/o IVDU years ago) Allergies-Medications (Allergen,Severity, Reaction): Coded Allergies: No Known Allergies (Verified , 09/07/16) Home Meds Active Scripts Ferrous Sulfate 325 Mg [id number] Mg PO BIDAC #60 TAB Ref 0 Prov:Agustín Mckeon MD R2 08/24/16 Sertraline (Zoloft)25 Mg Tab25 Mg PO DAILY #30 TAB Ref 1 Prov:Agustín Mckeon MD R2 08/24/16 Clonazepam 0.5 Mg Tab0.5 Mg PO BID #40 TAB Ref 0 Prov:Agustín Mckeon MD R2 08/24/16 Reported Medications Vit-Ferrous Fumarate ()1 Tab Tab1 Tab PO DAILY #30 TAB Ref 0 08/08/16 Review of Systems Except as stated in HPI: all other systems reviewed are Neg Physical Exam Narrative GENERAL: Well-nourished, well-developed patient. SKIN: Warm and dry. HEAD: Normocephalic and atraumatic. EYES: No scleral icterus. No injection or drainage. ENT: No nasal drainage noted. Mucous membranes pink. Airway patent. NECK: Supple, trachea midline. No JVD. CARDIOVASCULAR: Regular rate and rhythm without murmurs, gallops, or rubs. RESPIRATORY: Breath sounds equal bilaterally. No accessory muscle use. BREASTS: Bilateral exam showed no masses , no retractions, no nipple discharge. ABDOMEN/GI: Abdomen soft, non-tender, bowel sounds present, no rebound, no guarding Gravid to 39 weeks size GENITOURINARY: External Genitalia: intact and normal in appearance Cervix: 2cm per patient, at exam in the office today Membranes: intact Uterine Contractions: few irregular FHT's: Category: 1 EXTREMITIES: No cyanosis or edema. BACK: Nontender without obvious deformity. No CVA tenderness. NEUROLOGICAL: Awake and alert. Motor and sensory grossly within normal limits. Five out of 5 muscle strength in all muscle groups. Normal speech. Data Data Vital Signs Reviewed: Yes Orders Vital Signs (Adult) .ON ADMISSION (09/07/16 23:51) ^ Labor Status (09/07/16 23:51) Urinalysis - C+S If Indicated (09/07/16 23:51) MDM Medical Record Reviewed: Yes Interpretation(s) 25y/o at 39w1d with ?LOF. -amnisure negative -reassuring status -no evidence of labor Plan -d/c home -f/u with routine care as scheduled -pt aware labor precautions Diagnosis Diagnosis: Primary Impression: Encounter for suspected premature rupture of membranes, with rupture of membranes not found Additional Impression: 39 weeks gestation of Disposition: DISCHARGE HOME Patient Instructions: Abdominal Pain in (ED) Carolina Bain MD September 08, 2016 00:00
[2016-09-08] MEDS ORDERED: SUBO8MIS SL (23:31)
[2016-09-08] MEDS ORDERED: CLON.5 PO (23:31)
[2016-09-19] MEDS ORDERED: ZOLO25TA PO (10:24)
[2016-09-19] MEDS ORDERED: CLON.5 PO (10:24)
[2016-10-17] MEDS ORDERED: CLON.5 PO (15:45)
[2016-10-17] MEDS ORDERED: ZOLO25TA PO (15:45)
[2016-10-17] MEDS ORDERED: IBUP-232 PO (15:46)
[2016-10-17] MEDS ORDERED: JOLI0.35 PO (15:49)
[2016-10-17] MEDS ORDERED: TRICTAB PO (22:24)
== END 2016-09-08 00:10 | disposition home or self-care (01) ==
LOC: HOBED 22:48
DX: O26.893 Other specified pregnancy related conditions, third trimester (principal); Z3A.39 39 weeks gestation of pregnancy
CPT/HCPCS: 84112; 99281

== ENCOUNTER 2016-09-08 21:20 | Inpatient (IN) | payer MEDICAID ==
[~2016-09-08] VITALS: Ht 162.6 cm; Wt 86.2 kg
[2016-09-08] MEDS ORDERED: LACTATED RINGER'S 1000 ML INJ 1,000 ML IV PRN (22:14)
[2016-09-08] MEDS ORDERED: OXYTOCIN 30 UNITS-500ML PREMIX 500 ML IV ONE (22:15)
[2016-09-08] MEDS ORDERED: ONDANSETRON HCL 4 MG/2 ML VIAL IV PRN (22:15)
[2016-09-08] MEDS ORDERED: MINERAL OIL 10 ML VIAL TOPICAL PRN (22:15)
[2016-09-08] MEDS ORDERED: LIDOCAINE HCL 1% 50 ML VIAL I-DERMAL PRN (22:15)
[2016-09-08] MEDS ORDERED: CITRIC ACID-SODIUM CITRATE LIQ 30 ML UDC PO SCH (22:15)
[2016-09-08] MEDS ORDERED: LIDOCAINE HCL 1% 50 ML VIAL INFIL PRN (22:15)
[2016-09-08] MEDS ORDERED: SODIUM CHLORID 0.9% 500 ML INJ 500 ML IV PRN (22:15)
--- NOTE | 2016-09-08 22:28 | PD ---
HPI Chief Complaint leaking fluid, contractions Date Seen: September 08, 2016 Time Seen: 22:00 (Jaren Gallagher MD R2) Travel History International Travel<30 Days: No Contact w/Intl Traveler<30Days: No (Jaren Gallagher MD R2) History of Present Illness HPI 25 year old at 39/2 weeks gestation, GBS negative. Presents with leaking of clear fluid since 11 AM. Contractions are intermittent, occurring about 20 to 30 minutes apart. Has good movements. No headache, blurry vision, chest pain, shortness of breath, epigastric pain, calf swelling or tenderness. complicated by Suboxone use since 2 days ago for opioid dependence. Reports use of Roxicodone and Xanax one month ago. Reports no history of IV drug use. No history of other drug abuse. Reports 5 cigarettes per day, was half a pack per day up to 5 months gestation. No alcohol use. Has a history of hepatitis C, reports that most recent test showed clearance of hepatitis C. She has late care with Dr. Mckeon starting in May. (Jaren Gallagher MD R2) History Past Medical History Narrative Medical History hepatitis C Opioid dependence Suboxone maintenance therapy (Jaren Gallagher MD R2) Obstetric History Obstetric History GBS negative: August 24 OB US on July 18: Normal, cephalic presentation Ordering labs (Jaren Gallagher MD R2) Past Surgical History Narrative Surgical None (Jaren Gallagher MD) Family History Narrative Family History None significant (Jaren Gallagher MD) Social History Narrative Social History Suboxone 16 mg qday for opioid dependence maintenance therapy History of opioid and benzodiazepine abuse No IV drug use reported No other drug use reported 5 cigarettes per day, was half pack per day before 5 months gestation No alcohol use reported (Jaren Gallagher MD R2) Allergies-Medications (Allergen,Severity, Reaction): Coded Allergies: No Known Allergies (Verified , 09/08/16) Home Meds Active Scripts Sertraline (Zoloft)25 Mg Tab25 Mg PO DAILY #30 TAB Ref 1 Prov:Agustín Mckeon MD 08/24/16 Clonazepam 0.5 Mg Tab0.5 Mg PO BID #40 TAB Ref 0 Prov:Agustín Mckeon MD 08/24/16 Reported Medications Buprenorphine-Naloxone Sublingual Film (Suboxone Sublingual Film)8-2 Mg Film1 Film SL BID Unique ID number required: 09/08/16 Clonazepam (Klonopin)0.5 Mg Tab0.5 Mg PO BID #60 TAB Ref 0 09/08/16 Vit-Ferrous Fumarate ()1 Tab Tab1 Tab PO DAILY #30 TAB Ref 0 08/08/16 Discontinued Scripts Ferrous Sulfate 325 Mg [id number] Mg PO BIDAC #60 TAB Ref 0 Prov:Agustín Mckeon MD R2 08/24/16 Review of Systems Except as stated in HPI: all other systems reviewed are Neg (Jaren Gallagher MD R2) Physical Exam Narrative GENERAL: Well-nourished, well-developed patient. SKIN: Warm and dry. HEAD: Normocephalic and atraumatic. EYES: No scleral icterus. No injection or drainage. ENT: No nasal drainage noted. Mucous membranes pink. Airway patent. NECK: Supple, trachea midline. No JVD. CARDIOVASCULAR: Regular rate and rhythm without murmurs, gallops, or rubs. RESPIRATORY: Breath sounds equal bilaterally. No accessory muscle use. ABDOMEN/GI: Abdomen soft, non-tender, bowel sounds present, no rebound, no guarding Gravid to 39 weeks size GENITOURINARY: External Genitalia: intact and normal in appearance Dilatation: 2-3 cm Effacement: 50% Station: -1 Presentation: vertex Membranes: ruptured Uterine Contractions: q3mins, sporadic FHT's: Category: 1 Baseline: 140 Reactive: yes Variability: moderate Decels: none EXTREMITIES: No cyanosis or edema. BACK: Nontender without obvious deformity. No CVA tenderness. NEUROLOGICAL: Awake and alert. Motor and sensory grossly within normal limits. Five out of 5 muscle strength in all muscle groups. Normal speech. (Jaren Gallagher MD R2) Data Data Vital Signs Reviewed: Yes Orders Ob (2e) Additional Admit Info (09/08/16 21:59) (Jaren Gallagher MD R2) [facility] Medical Record Reviewed: Yes Interpretation(s) 25 year old at 39/2 weeks gestation here after rupture of membranes and periodic contractions - External monitoring - Epidural PRN for pain management - Ordered labs, hepatitis profile - Urinary drug screen due to history - Admit to labor and delivery, anticipate vaginal delivery Discussed with Dr. Schmidt Seen and discussed with Dr. Xiomara Moreno (Jaren Gallagher MD R2) Attending Attestation Patient seen and evaluated with resident under direct supervision, agree with assessment and plan. (Jules Schmidt MD) Jaren Gallagher MD R2 September 08, 2016 22:28 Jules Schmidt MD September 09, 2016 04:06
[2016-09-08] MEDS ORDERED: OXYTOCIN 30 UNITS-500ML PREMIX 500 ML IV SCH (22:30)
--- NOTE | 2016-09-08 22:33 | HHI.HP ---
History & Physical H&P Patient Name: Yanique Tucker Unit Number: [id number] Date of : 1990 Patient Status: Admitted Inpatient Attending Doctor: Jules Schmidt MD HPI HPI Chief Complaint leaking fluid, contractions Date Seen: September 08, 2016 Time Seen: 22:00 Travel History International Travel<30 Days: No Contact w/Intl Traveler<30Days: No History of Present Illness HPI 25 year old at 39/2 weeks gestation, GBS negative. Presents with leaking of clear fluid since 11 AM. Contractions are intermittent, occurring about 20 to 30 minutes apart. Has good movements. No headache, blurry vision, chest pain, shortness of breath, epigastric pain, calf swelling or tenderness. complicated by Suboxone use since 2 days ago for opioid dependence. Reports use of Roxicodone and Xanax one month ago. Reports no history of IV drug use. No history of other drug abuse. Reports 5 cigarettes per day, was half a pack per day up to 5 months gestation. No alcohol use. Has a history of hepatitis C, reports that most recent test showed clearance of hepatitis C. She has late care with Dr. Mckeon starting in May. History (Limited) History Past Medical History Narrative Medical History hepatitis C Opioid dependence Suboxone maintenance therapy Obstetric History Obstetric History GBS negative: August 24 OB US on July 18: Normal, cephalic presentation Ordering labs Past Surgical History Narrative Surgical None Family History Narrative Family History None significant Social History Narrative Social History Suboxone 16 mg qday for opioid dependence maintenance therapy History of opioid and benzodiazepine abuse No IV drug use reported No other drug use reported 5 cigarettes per day, was half pack per day before 5 months gestation No alcohol use reported Allergies-Medications Allergies-Medications (Allergen,Severity, Reaction): Coded Allergies: No Known Allergies (Verified , 09/07/16) Home Meds Active Scripts Ferrous Sulfate 325 Mg [id number] Mg PO BIDAC #60 TAB Ref 0 Prov:Agustín Mckeon MD R2 08/24/16 Sertraline (Zoloft)25 Mg Tab25 Mg PO DAILY #30 TAB Ref 1 Prov:Agustín Mckeon MD R2 08/24/16 Clonazepam 0.5 Mg Tab0.5 Mg PO BID #40 TAB Ref 0 Prov:Agustín Mckeon MD R2 08/24/16 Reported Medications Vit-Ferrous Fumarate ()1 Tab Tab1 Tab PO DAILY #30 TAB Ref 0 08/08/16 ROS Review of Systems Except as stated in HPI: all other systems reviewed are Neg Physical Exam Physical Exam Narrative GENERAL: Well-nourished, well-developed patient. SKIN: Warm and dry. HEAD: Normocephalic and atraumatic. EYES: No scleral icterus. No injection or drainage. ENT: No nasal drainage noted. Mucous membranes pink. Airway patent. NECK: Supple, trachea midline. No JVD. CARDIOVASCULAR: Regular rate and rhythm without murmurs, gallops, or rubs. RESPIRATORY: Breath sounds equal bilaterally. No accessory muscle use. ABDOMEN/GI: Abdomen soft, non-tender, bowel sounds present, no rebound, no guarding Gravid to 39 weeks size GENITOURINARY: External Genitalia: intact and normal in appearance Dilatation: 2-3 cm Effacement: 50% Station: -1 Presentation: vertex Membranes: ruptured Uterine Contractions: q3mins, sporadic FHT's: Category: 1 Baseline: 140 Reactive: yes Variability: moderate Decels: none EXTREMITIES: No cyanosis or edema. BACK: Nontender without obvious deformity. No CVA tenderness. NEUROLOGICAL: Awake and alert. Motor and sensory grossly within normal limits. Five out of 5 muscle strength in all muscle groups. Normal speech. Data Data Data Vital Signs Reviewed: Yes Orders Ob (2e) Additional Admit Info (09/08/16 21:59) [facility] Medical Record Reviewed: Yes Interpretation(s) 25 year old at 39/2 weeks gestation here after rupture of membranes and periodic contractions - External monitoring - Epidural PRN for pain management - Ordered labs, hepatitis profile - Urinary drug screen due to history - Admit to labor and delivery, anticipate vaginal delivery Discussed with Dr. Schmidt Seen and discussed with Dr. Xiomara Moreno (Jaren Gallagher MD R2) H&P Patient seen and evaluated with resident under direct supervision, agree with assessment and plan. (Jules Schmidt MD) Jaren Gallagher MD R2 September 08, 2016 22:33 Jules Schmidt MD September 09, 2016 04:07
[2016-09-08] MEDS ORDERED: SODIUM CHLOR 0.9% 1000 ML INJ 1,000 ML IV PRN (22:34)
[2016-09-08 23:08] LABS: AUTOMATED NEUTROPHIL # 7.7 TH/MM3 (1.8-7.7); BASOPHIL # 0.1 TH/MM3 (0-0.2); BASOPHIL % 0.7 % (0.0-2.0); EOSINOPHIL # 0.1 TH/MM3 (0-0.4); EOSINOPHIL % 0.7 % (0.0-4.0); HEMATOCRIT 32.8 % (35.0-46.0); HEMO FLAGS DIFF FINAL; LYMPH % 25.3 % (9.0-44.0); LYMPHOCYTE # 2.9 TH/MM3 (1.0-4.8); MEAN CELL VOLUME 82.4 FL (80.0-100.0); MEAN CORPUSCULAR HGB CONC 32.7 % (32.0-36.0); MONO % 6.3 % (0.0-8.0); PLATELET COUNT 165 TH/MM3 (150-450); RED BLOOD COUNT 3.98 MIL/MM3 (4.00-5.30); RED CELL DISTRIBUTION WIDTH 14.7 % (11.6-17.2); WHITE BLOOD COUNT 11.5 TH/MM3 (4.0-11.0)
[2016-09-08 23:26] VITALS: BP 114/54; PULSE 66
[2016-09-08] MEDS: LACTATED RINGER'S 1000 ML INJ 1,000 ML IV SCH (23:26)
[2016-09-08] MEDS ORDERED: CLON.5 PO (23:31)
[2016-09-08] MEDS ORDERED: SUBO8MIS SL (23:31)
[2016-09-08] MEDS ORDERED: fentaNYL 2MCG-BUPIV 0.125% INJ 100 ML ONE (23:37)
[2016-09-08] MEDS ORDERED: ePHEDrine/NS 25 MG/5 ML SYR ONE (23:38)
[2016-09-08] MEDS: clonazePAM 0.5 MG TAB PO SCH (23:56)
[2016-09-09] VITALS (73 sets, daily range): BP systolic 93–139; BP diastolic 44–98; PULSE 55–118; RESP 18–19; TEMP 97.4–98.4
[2016-09-09] MEDS ORDERED: DO NOT ADMINISTER ANTICOAGULANTS PRN (00:30)
[2016-09-09] MEDS ORDERED: NO SYSTEM NARCOTICS PRN (00:30)
[2016-09-09] MEDS ORDERED: fentaNYL 2MCG-BUPIV 0.125% 100 ML EPIDURAL SCH (00:30)
[2016-09-09 01:20] LABS: BLOOD, URINE NEG (NEG); COMMENT (UR) CULT NOT INDICATED; CULTURE IF INDICATED CULT NOT INDICATED; GLUCOSE,URINE NEG (NEG); KETONE, URINE TRACE mg/dL (NEG); MUCUS URINE FEW /lpf (OCC); NITRITE,URINE NEG (NEG); SQUAMOUS EPITHELIAL CELL URINE <1 /hpf (0-5); URINE COLOR LIGHT-YELLOW (YELLW/STRAW)
[2016-09-09 01:26] LABS: AMPHETAMINE, URINE NEG (NEG); BARBITURATES, URINE NEG (NEG); COCAINE, URINE NEG (NEG)
[2016-09-09] MEDS ORDERED: ePHEDrine/NS 25 MG/5 ML SYR IV PRN (01:30)
--- NOTE | 2016-09-09 02:26 | PD.LABORPN ---
Subjective Subjective Pt reports mild 12/10 pain after epidural which was placed at approximately 12: 45 AM. She is expressing significant relief of pain. SROM prior to admission at 11 AM on 09/08, clear fluid (Xiomara Moreno MD R1) Objective Vital Signs Vital Signs Date Time Temp Pulse Resp B/P Pulse Ox O2 Delivery O2 Flow Rate FiO2 09/09/16 01:30 97.4 18 09/09/16 01:25 58 09/09/16 01:20 70 09/09/16 01:15 62 09/09/16 01:15 67 120/57 09/09/16 01:10 78 09/09/16 01:05 75 09/09/16 01:01 82 114/62 09/09/16 01:01 18 09/09/16 01:00 77 09/09/16 00:51 64 119/58 09/09/16 00:50 66 09/09/16 00:48 18 09/09/16 00:46 67 110/68 09/09/16 00:45 56 09/09/16 00:42 18 09/09/16 00:41 66 114/57 09/09/16 00:40 62 09/09/16 00:38 63 115/59 09/09/16 00:35 57 09/08/16 23:26 66 114/54 Objective Vital signs: Reviewed and within normal limits, most recent BP 120/57 Pelvic Exam: Cervix: 2-3/50%/-1 Presentation: Vertex Membranes: SROM 09/08 @ 1100 Uterine Contractions: every 2-4 min FHT's: Category: 1 Baseline: 135 Reactive: Y to 150 Variability: Moderate Decels: Absent Labs: CBC unremarkable, mild anemia wnl. UDS negative. HIV negative. (Xiomara Moreno MD R1) Assessment/Plan Problem List: (1) 39 weeks gestation of (2) Benzodiazepine dependence (3) Maternal drug dependence, antepartum (4) Smoking tobacco complicating childbirth (5) Hepatitis C antibody positive in blood Assessment and Plan Assessment: 39 and 3/7 week gestation in latent first stage of labor Progressing slowly, will monitor for now. So far 4 hours with some effacement. Good pain relief from epidural Reassuring FHTs, Category 1 tracing Adequate contraction pattern History of drug use/teratogens - Klonopin, Zoloft, Suboxone complicated by Suboxone use (16mg daily) since 2 days ago for opioid dependence. Reports use of Roxicodone and Xanax one month ago (one time). Continuing Klonopin due to seizure risk with abrupt cessation Tobacco dependence Late PNC at 22 weeks GBS status: negative Plan: 1. Continue routine labor care 2. Continue Pitocin 3. Anticipate vaginal delivery (Xiomara Moreno MD R1) Assessment and Plan Patient seen and evaluated with resident under direct supervision, agree with assessment and plan. (Jules Schmidt MD) Xiomara Moreno MD R1 September 09, 2016 02:26 Jules Schmidt MD September 09, 2016 04:08
[2016-09-09 02:46] LABS: AMPHETAMINE, URINE NEG (NEG); BARBITURATES, URINE NEG (NEG); COCAINE, URINE NEG (NEG)
--- NOTE | 2016-09-09 04:12 | PD.LABORPN ---
Subjective Subjective The patient is comfortable with epidural. Objective Vital Signs Vital Signs Date Time Temp Pulse Resp B/P Pulse Ox O2 Delivery O2 Flow Rate FiO2 09/09/16 03:05 66 09/09/16 03:00 60 18 108/45 09/09/16 03:00 62 09/09/16 03:00 97.5 09/09/16 02:55 64 09/09/16 02:50 83 09/09/16 02:45 85 103/63 09/09/16 02:45 92 09/09/16 02:35 73 18 09/09/16 02:31 69 93/60 09/09/16 02:30 73 09/09/16 02:30 18 09/09/16 02:25 75 09/09/16 02:20 70 09/09/16 02:15 71 103/63 09/09/16 02:15 18 09/09/16 02:15 81 09/09/16 02:10 72 09/09/16 02:05 70 09/09/16 02:01 76 106/64 09/09/16 02:00 69 18 09/09/16 01:55 63 09/09/16 01:50 68 09/09/16 01:45 72 110/61 09/09/16 01:45 68 09/09/16 01:40 77 09/09/16 01:35 64 09/09/16 01:32 58 106/62 09/09/16 01:31 63 09/09/16 01:30 65 09/09/16 01:30 97.4 18 09/09/16 01:25 58 09/09/16 01:20 70 09/09/16 01:15 62 09/09/16 01:15 67 120/57 09/09/16 01:10 78 09/09/16 01:05 75 09/09/16 01:01 82 114/62 09/09/16 01:01 18 09/09/16 01:00 77 09/09/16 00:51 64 119/58 09/09/16 00:50 66 09/09/16 00:48 18 09/09/16 00:46 67 110/68 09/09/16 00:45 56 09/09/16 00:42 18 09/09/16 00:41 66 114/57 09/09/16 00:40 62 09/09/16 00:38 63 115/59 09/09/16 00:35 57 09/08/16 23:26 66 114/54 Objective Pelvic Exam: Cervix: [-] Dilatation: [-4] Effacement: [-90] Station: [-1-] Presentation: [-Vertex] Membranes: [ ruptured] Uterine Contractions: [Every 3-] FHT's: Category: [1-] Baseline: [-] Reactive: [-] Variability: [Moderate-] Decels: [-] IUPC placed Assessment/Plan Problem List: (1) 39 weeks gestation of (2) Benzodiazepine dependence (3) Maternal drug dependence, antepartum (4) Smoking tobacco complicating childbirth (5) Hepatitis C antibody positive in blood Assessment and Plan Assessment: Latent labor, category 1 heart rate Plan: Continue Pitocin augmentation Jules Schmidt MD September 09, 2016 04:12
[2016-09-09] MEDS ORDERED: IBUPROFEN 600 MG TAB PO PRN (07:00)
[2016-09-09] MEDS ORDERED: ACETAMINOPHEN 325 MG TAB PO PRN ×2 (07:00→08:00)
[2016-09-09] MEDS ORDERED: DOCUSATE SODIUM 50 MG/SENNA 8.6 MG TAB PO PRN (07:00)
[2016-09-09] MEDS ORDERED: SODIUM CHLORIDE 0.9% FLUSH 10 ML FLUSH IV FLUSH PRN ×2 (07:00)
[2016-09-09] MEDS ORDERED: BENZOCAINE 20% TOPICAL SPRAY 60 ML CAN TOPICAL PRN ×2 (07:00)
[2016-09-09] MEDS ORDERED: WITCH HAZEL 50%/GLYCERIN 12.5% 40 PAD JAR TOPICAL PRN (07:00)
[2016-09-09] MEDS ORDERED: ALUMINUM/MAGNESIUM/SIMETH 30 ML CUP PO PRN ×2 (07:00→08:00)
[2016-09-09] MEDS ORDERED: ONDANSETRON ODT 4 MG TAB PO PRN ×2 (07:00)
--- NOTE | 2016-09-09 07:07 | PD.OB.DELI ---
Anesthesia: Epidural Episiotomy: None Vaginal Delivery: Spontaneous Presentation: Occiput anterior Nuchal Cord: x2 Delayed cord clamping (45 sec): Yes (EBL 200 cc, no complications) Infant: Male One Minute : 7 Ten Minute : 8 Weight: [id number] Placenta: Spontaneous delivery, Intact, 3 vessel cord Laceration: Vaginal laceration, 1 deg Jules Schmidt MD September 09, 2016 07:07
[2016-09-09] MEDS: SODIUM CHLORIDE 0.9% FLUSH 10 ML FLUSH IV FLUSH SCH ×4 (07:35→21:00)
[2016-09-09] MEDS: IBUPROFEN 600 MG TAB PO PRN ×3 (07:45→23:52)
[2016-09-09] MEDS ORDERED: oxyCODONE/ACETAMINOPHEN 5 MG/325 MG TAB PO PRN (08:00)
[2016-09-09] MEDS: WITCH HAZEL 50%/GLYCERIN 12.5% 40 PAD JAR TOPICAL PRN (10:37)
[2016-09-09] MEDS: clonazePAM 0.5 MG TAB PO SCH ×2 (10:37→21:59)
[2016-09-09] MEDS: DOCUSATE SODIUM 50 MG/SENNA 8.6 MG TAB PO PRN ×2 (10:38→22:00)
[2016-09-09] MEDS ORDERED: PILL SPLITTER OTHER PRN (11:00)
[2016-09-09] MEDS: SERTRALINE HCL 50 MG TAB PO SCH (12:06)
[2016-09-09] MEDS: oxyCODONE/ACETAMINOPHEN 5 MG/325 MG TAB PO PRN ×3 (12:06→23:53)
[2016-09-09] MEDS: FLUTICASONE PROPIONATE 50 MCG/ACT 16 GM NASAL SPRAY EACH NARE SCH (12:06)
[2016-09-09] MEDS ORDERED: DIPHTH/TETANUS/ACEL PERTUSSIS (BOOSTER) 0.5 ML VIAL/PFS IM ONE ×2 (16:00)
[2016-09-09] MEDS ORDERED: MEASLES, MUMPS, RUBELLA VACCINE 0.5 ML VIAL SQ ONE ×2 (16:00)
[2016-09-09] MEDS: LACTATED RINGER'S 1000 ML INJ 1,000 ML IV SCH (21:43)
[2016-09-10] MEDS: LACTATED RINGER'S 1000 ML INJ 1,000 ML IV SCH ×2 (06:14→09:14)
[2016-09-10] MEDS: IBUPROFEN 600 MG TAB PO PRN ×3 (06:17→18:33)
[2016-09-10] MEDS: oxyCODONE/ACETAMINOPHEN 5 MG/325 MG TAB PO PRN ×3 (06:17→18:33)
[2016-09-10] MEDS: SODIUM CHLORIDE 0.9% FLUSH 10 ML FLUSH IV FLUSH SCH ×4 (09:00→23:20)
[2016-09-10] MEDS: FLUTICASONE PROPIONATE 50 MCG/ACT 16 GM NASAL SPRAY EACH NARE SCH ×2 (09:00→21:09)
[2016-09-10] MEDS: clonazePAM 0.5 MG TAB PO SCH ×2 (09:13→21:08)
[2016-09-10] MEDS: SERTRALINE HCL 50 MG TAB PO SCH (09:13)
[2016-09-10 09:29] VITALS: BP 119/73; PULSE 62; RESP 18; TEMP 97.5
--- NOTE | 2016-09-10 09:54 | HHI.OB ---
Subjective Post Day: 1 Remarks Pt seen and examined this morning. day # 1 AFVSS overnight. Decreased lochia. Denies dysuria. No breast tenderness. She is feeding the baby via bottle. Appetite good. No nausea or vomiting. Patient has not yet had a bowel movement. Ambulating well. Denies calf pain or shortness of breath. She does report that her right lower extremity has become more swollen, no swelling of her left leg. Otherwise, she is doing well this morning and has no other concerns. (Keith Moreno MD R2) Objective Vitals/I&O Vital Signs Date Time Temp Pulse Resp B/P Pulse Ox O2 Delivery O2 Flow Rate FiO2 09/10/16 09:29 119/73 09/10/16 09:29 97.5 62 18 Objective Remarks GENERAL: Well-nourished, well-developed patient. CARDIOVASCULAR: Regular rate and rhythm without murmurs, gallops, or rubs. RESPIRATORY: Breath sounds equal bilaterally. No accessory muscle use. ABDOMEN/GI: Abdomen soft, non-tender. Fundus: Firm, non-tender at umbilicus. GENITOURINARY: Light to moderate bleeding. EXTREMITIES: No cyanosis or edema, non-tender, without signs of DVT. Medications and IVs Current Medications Medications (Trade) Dose Ordered Sig/Milagro Route Start Time Stop Time Status Last Admin Lactated Ringer's 1,000 ml @ 125 mls/hr Q8H IV 09/08/16 22:14 09/08/16 23:26 Lactated Ringer's 1,000 ml @ 3,000 mls/hr Q20M PRN IV 09/08/16 22:14 Sodium Chloride 500 ml @ 1,000 mls/hr ONCE PRN IV 09/08/16 22:15 09/11/16 22:14 (NS 1000 ml Inj) 1,000 ml @ 100 mls/hr Q10H PRN IV 09/08/16 22:34 (fentaNYL INJ) 50 mcg Q1H PRN IV PUSH 09/08/16 22:15 (fentaNYL INJ) 100 mcg Q1H PRN IV PUSH 09/08/16 22:15 Mineral Oil 10 ml 10 ml UNSCH PRN TOPICAL 09/08/16 22:15 (Pitocin 30 Units-NS 500 ml Premix) 500 ml @ 0 mls/hr TITRATE IV 09/08/16 22:30 09/08/16 23:28 Clonazepam 0.5 mg 0.5 mg BID PO 09/08/16 23:15 09/10/16 09:13 (fentaNYL 2MCG-BUPIV 0.125% INJ) 100 ml @ 0 mls/hr TITRATE EPIDURAL 09/09/16 00:30 09/09/16 07:05 (NS Flush) 2 ml BID IV FLUSH 09/09/16 09:00 (NS Flush) 2 ml UNSCH PRN IV FLUSH 09/09/16 07:00 (Tylenol) 650 mg Q4H PRN PO 09/09/16 07:00 (Americaine 20% Top Spr) 1 spray Q4H PRN TOPICAL 09/09/16 07:00 09/09/16 10:37 (Tucks Pads) 1 applic QID PRN TOPICAL 09/09/16 07:00 09/09/16 10:37 (Zofran Odt) 4 mg Q6H PRN PO 09/09/16 07:00 (NS Flush) 2 ml BID IV FLUSH 09/09/16 09:00 (NS Flush) 2 ml UNSCH PRN IV FLUSH 09/09/16 07:00 (Tylenol) 650 mg Q4H PRN PO 09/09/16 08:00 (Motrin) 600 mg Q6HR PRN PO 09/09/16 08:00 09/10/16 06:17 (Percocet 5-325 Mg) 1 tab Q4H PRN PO 09/09/16 08:00 09/09/16 07:45 (Oumou-Colace) 2 tab Q12HR PRN PO 09/09/16 09:00 09/09/16 22:00 (Mag-Al Plus Susp Liq) 15 ml Q8HR PRN PO 09/09/16 08:00 (Percocet 5-325 Mg) 2 tab Q4H PRN PO 09/09/16 10:45 09/10/16 06:17 (Zoloft) 25 mg DAILY PO 09/09/16 11:00 09/10/16 09:13 (Flonase Martin Spr) 2 spray DAILY EACH NARE 09/09/16 12:00 09/10/16 09:00 (Pill Splitter) 1 ea UNSCH PRN OTHER 09/09/16 11:00 (Keith Moreno MD R2) Assessment/Plan Problem List: (1) 39 weeks gestation of (2) Benzodiazepine dependence (3) Maternal drug dependence, antepartum (4) Smoking tobacco complicating childbirth (5) Hepatitis C antibody positive in blood Assessment and Plan 25 y/o female who is PPD# 1 s/p . -Continue routine care. -Percocet and Motrin PRN pain. -Encouraged OOB. Advised pelvic rest for 6 wks. -Pt with right lower extremity edema on exam, will order a ultrasound to rule out possible DVT. -Re: ctrl, she would like the Depo-Provera injection, and is interested in getting an IUD. Will hold off on hormonal control until US has resulted. -Anticipate discharge tomorrow. dw Dr. Isabel MD (Keith Moreno MD R2) Collaborating MD Comments Patient seen and examined. Appears to have related edema but will order dopple ultrasound to r/o DVT (Nasreen Hall MD) Keith Moreno MD R2 September 10, 2016 09:54 Nasreen Hall MD Sep 27, 2016 07:36
--- NOTE | 2016-09-10 10:03 | HHI.OB ---
Subjective Post Day: 1 Remarks Patient is a 25-year-old delivered at 39 weeks and 3 days. Patient is day 1 after . Patient's pain is well-controlled. Patient reports eating and drinking without any nausea or vomiting. Patient reports minimal bleeding. Patient has passed gas but no bowel movements. Patient is walking without lower extremity pain or shortness of breath. Patient does however report that she feels that her right leg is more swollen than her left leg. She denies any pain, swelling, tenderness, induration, warmth. Patient reports desire for contraception. (Jaren Lambert MD R1) Objective Vitals/I&O Vital Signs Date Time Temp Pulse Resp B/P Pulse Ox O2 Delivery O2 Flow Rate FiO2 09/10/16 09:29 119/73 09/10/16 09:29 97.5 62 18 Objective Remarks GENERAL: Well-nourished, well-developed patient. CARDIOVASCULAR: Regular rate and rhythm without murmurs, gallops, or rubs. RESPIRATORY: Breath sounds equal bilaterally. No accessory muscle use. ABDOMEN/GI: Abdomen soft, non-tender. Fundus: Firm, non-tender at umbilicus. GENITOURINARY: Light to moderate bleeding. EXTREMITIES: Her right leg is more swollen than her left leg, and there is trace pitting edema to mid bryson R>L. There is no pain, swelling, tenderness, induration, warmth. Medications and IVs Current Medications Medications (Trade) Dose Ordered Sig/Milagro Route Start Time Stop Time Status Last Admin Lactated Ringer's 1,000 ml @ 125 mls/hr Q8H IV 09/08/16 22:14 09/08/16 23:26 Lactated Ringer's 1,000 ml @ 3,000 mls/hr Q20M PRN IV 09/08/16 22:14 Sodium Chloride 500 ml @ 1,000 mls/hr ONCE PRN IV 09/08/16 22:15 09/11/16 22:14 (NS 1000 ml Inj) 1,000 ml @ 100 mls/hr Q10H PRN IV 09/08/16 22:34 (fentaNYL INJ) 50 mcg Q1H PRN IV PUSH 09/08/16 22:15 (fentaNYL INJ) 100 mcg Q1H PRN IV PUSH 09/08/16 22:15 Mineral Oil 10 ml 10 ml UNSCH PRN TOPICAL 09/08/16 22:15 (Pitocin 30 Units-NS 500 ml Premix) 500 ml @ 0 mls/hr TITRATE IV 09/08/16 22:30 09/08/16 23:28 Clonazepam 0.5 mg 0.5 mg BID PO 09/08/16 23:15 09/10/16 09:13 (fentaNYL 2MCG-BUPIV 0.125% INJ) 100 ml @ 0 mls/hr TITRATE EPIDURAL 09/09/16 00:30 09/09/16 07:05 (NS Flush) 2 ml BID IV FLUSH 09/09/16 09:00 (NS Flush) 2 ml UNSCH PRN IV FLUSH 09/09/16 07:00 (Tylenol) 650 mg Q4H PRN PO 09/09/16 07:00 (Americaine 20% Top Spr) 1 spray Q4H PRN TOPICAL 09/09/16 07:00 09/09/16 10:37 (Tucks Pads) 1 applic QID PRN TOPICAL 09/09/16 07:00 09/09/16 10:37 (Zofran Odt) 4 mg Q6H PRN PO 09/09/16 07:00 (NS Flush) 2 ml BID IV FLUSH 09/09/16 09:00 (NS Flush) 2 ml UNSCH PRN IV FLUSH 09/09/16 07:00 (Tylenol) 650 mg Q4H PRN PO 09/09/16 08:00 (Motrin) 600 mg Q6HR PRN PO 09/09/16 08:00 09/10/16 06:17 (Percocet 5-325 Mg) 1 tab Q4H PRN PO 09/09/16 08:00 09/09/16 07:45 (Oumou-Colace) 2 tab Q12HR PRN PO 09/09/16 09:00 09/09/16 22:00 (Mag-Al Plus Susp Liq) 15 ml Q8HR PRN PO 09/09/16 08:00 (Percocet 5-325 Mg) 2 tab Q4H PRN PO 09/09/16 10:45 09/10/16 06:17 (Zoloft) 25 mg DAILY PO 09/09/16 11:00 09/10/16 09:13 (Flonase Martin Spr) 2 spray DAILY EACH NARE 09/09/16 12:00 09/10/16 09:00 (Pill Splitter) 1 ea UNSCH PRN OTHER 09/09/16 11:00 (Jaren Lambert MD R1) Assessment/Plan Problem List: (1) 39 weeks gestation of (2) Benzodiazepine dependence (3) Maternal drug dependence, antepartum (4) Smoking tobacco complicating childbirth (5) Hepatitis C antibody positive in blood Assessment and Plan Patient is a 25-year-old delivered at 39 weeks and 3 days. Patient is day 1 after . 1. s/p Patient was counseled to do 6 weeks of pelvic rest. Patient was counseled to follow up in 6 weeks. Patient requested follow-up and contraception. --AF VSS --Continue routine care --Motrin and Percocet when necessary for pain --Encourage OOB --Pelvic rest for 6 weeks will need follow-up appointment at that time. --Contraception: Patient requested Depo shot until she can arrange for an IUD through her primary care provider --Anticipate discharge tomorrow 2. asymmetric leg swelling R>L. no warmth, erythema, tenderness, pain. --Lower extremity ultrasound with Doppler to rule out DVT DW Dr. Hall (Jaren Lambert MD R1) Collaborating MD Comments Plan doppler to r/o DVT, low clinical suspicion (Nasreen Hall MD) Jaren Lambert MD R1 September 10, 2016 10:03 Nasreen Hall MD Sep 27, 2016 07:37
[2016-09-10] MEDS ORDERED: medroxyPROGESTERone ACETATE SUSP 150 MG/ML SYRINGE IM ONE (12:15)
[2016-09-10] MEDS: DOCUSATE SODIUM 50 MG/SENNA 8.6 MG TAB PO PRN ×2 (12:53→21:08)
--- NOTE | 2016-09-10 14:11 | RADRPT ---
EXAM DATE/TIME: 09/10/2016 13:12 [place] COMPARISON: No previous studies available for comparison. INDICATIONS : Right leg edema. MEDICAL HISTORY : Hepatitis C. Depression. Anxiety. Tobacco use. SURGICAL HISTORY : None. ENCOUNTER: Initial ACUITY: 2 day PAIN SCORE: 2/10 LOCATION: Right leg. TECHNIQUE: Venous ultrasound of the leg was performed from the inguinal ligament to the proximal calf. Real-elizabeth e, color Doppler and spectral tracing, compression and augmentation techniques were used. FINDINGS: There is normal compressibility of the deep venous system from the inguinal region to the proximal ca lf. No echogenic clot is seen in the lumen of the common femoral, femoral, popliteal, and posterior tibial veins. There is a normal response of the venous system to proximal and distal augmentation an d respiration. CONCLUSION: No DVT is identified in the right lower extremity. Darek De Dios MD on September 10, 2016 at 14:09 Board Certified Radiologist. This report was verified electronically.
[2016-09-10 19:40] VITALS: BP 126/73; PULSE 64; RESP 18; TEMP 98.1
[2016-09-10 20:00] VITALS: BP 126/73; PULSE 64; RESP 18
[2016-09-11] MEDS: oxyCODONE/ACETAMINOPHEN 5 MG/325 MG TAB PO PRN ×3 (00:09→12:30)
[2016-09-11] MEDS: IBUPROFEN 600 MG TAB PO PRN ×3 (00:09→12:29)
--- NOTE | 2016-09-11 08:04 | HHI.OB ---
Subjective Post Day: 2 Remarks Patient is a 25-year-old delivered at 39 weeks and 3 days. Patient is day 2 after . Patient's pain is well-controlled. Patient reports eating and drinking without any nausea or vomiting. Patient reports minimal bleeding. Patient has passed gas but no bowel movements. Patient is walking without lower extremity pain or shortness of breath. Patient reports she has already received contraception with Depo shot yesterday and has been bottle- feeding. Objective Vitals/I&O Vital Signs Date Time Temp Pulse Resp B/P Pulse Ox O2 Delivery O2 Flow Rate FiO2 09/10/16 20:00 64 18 126/73 09/10/16 19:40 98.1 64 18 126/73 09/10/16 09:29 119/73 09/10/16 09:29 97.5 62 18 Objective Remarks GENERAL: Well-nourished, well-developed patient. CARDIOVASCULAR: Regular rate and rhythm without murmurs, gallops, or rubs. RESPIRATORY: Breath sounds equal bilaterally. No accessory muscle use. ABDOMEN/GI: Abdomen soft, non-tender. Fundus: Firm, non-tender at umbilicus. GENITOURINARY: Light to moderate bleeding. EXTREMITIES: Her right leg is more swollen than her left leg, and there is trace pitting edema to mid bryson R>L. There is no pain, swelling, tenderness, induration, warmth. Medications and IVs Current Medications Medications (Trade) Dose Ordered Sig/Milagro Route Start Time Stop Time Status Last Admin Lactated Ringer's 1,000 ml @ 125 mls/hr Q8H IV 09/08/16 22:14 09/08/16 23:26 Lactated Ringer's 1,000 ml @ 3,000 mls/hr Q20M PRN IV 09/08/16 22:14 Sodium Chloride 500 ml @ 1,000 mls/hr ONCE PRN IV 09/08/16 22:15 09/11/16 22:14 (NS 1000 ml Inj) 1,000 ml @ 100 mls/hr Q10H PRN IV 09/08/16 22:34 (fentaNYL INJ) 50 mcg Q1H PRN IV PUSH 09/08/16 22:15 (fentaNYL INJ) 100 mcg Q1H PRN IV PUSH 09/08/16 22:15 Mineral Oil 10 ml 10 ml UNSCH PRN TOPICAL 09/08/16 22:15 (Pitocin 30 Units-NS 500 ml Premix) 500 ml @ 0 mls/hr TITRATE IV 09/08/16 22:30 09/08/16 23:28 Clonazepam 0.5 mg 0.5 mg BID PO 09/08/16 23:15 09/10/16 21:08 (fentaNYL 2MCG-BUPIV 0.125% INJ) 100 ml @ 0 mls/hr TITRATE EPIDURAL 09/09/16 00:30 09/09/16 07:05 (NS Flush) 2 ml BID IV FLUSH 09/09/16 09:00 (NS Flush) 2 ml UNSCH PRN IV FLUSH 09/09/16 07:00 (Tylenol) 650 mg Q4H PRN PO 09/09/16 07:00 (Americaine 20% Top Spr) 1 spray Q4H PRN TOPICAL 09/09/16 07:00 09/09/16 10:37 (Tucks Pads) 1 applic QID PRN TOPICAL 09/09/16 07:00 09/09/16 10:37 (Zofran Odt) 4 mg Q6H PRN PO 09/09/16 07:00 (NS Flush) 2 ml BID IV FLUSH 09/09/16 09:00 (NS Flush) 2 ml UNSCH PRN IV FLUSH 09/09/16 07:00 (Tylenol) 650 mg Q4H PRN PO 09/09/16 08:00 (Motrin) 600 mg Q6HR PRN PO 09/09/16 08:00 09/11/16 06:00 (Percocet 5-325 Mg) 1 tab Q4H PRN PO 09/09/16 08:00 09/09/16 07:45 (Oumou-Colace) 2 tab Q12HR PRN PO 09/09/16 09:00 09/10/16 21:08 (Mag-Al Plus Susp Liq) 15 ml Q8HR PRN PO 09/09/16 08:00 (Percocet 5-325 Mg) 2 tab Q4H PRN PO 09/09/16 10:45 09/11/16 06:01 (Zoloft) 25 mg DAILY PO 09/09/16 11:00 09/10/16 09:13 (Flonase Martin Spr) 2 spray DAILY EACH NARE 09/09/16 12:00 09/10/16 21:09 (Pill Splitter) 1 ea UNSCH PRN OTHER 09/09/16 11:00 Assessment/Plan Problem List: (1) 39 weeks gestation of (2) Benzodiazepine dependence (3) Maternal drug dependence, antepartum (4) Smoking tobacco complicating childbirth (5) Hepatitis C antibody positive in blood Assessment and Plan Patient is a 25-year-old delivered at 39 weeks and 3 days. Patient is day 2 after . 1. s/p Patient was counseled to do 6 weeks of pelvic rest. Patient was counseled to follow up in 6 weeks. Patient requested follow-up and contraception. --AF VSS --Continue routine care --Motrin and Percocet when necessary for pain --Encourage OOB --Pelvic rest for 6 weeks will need follow-up appointment at that time. --Contraception: Patient requested Depo shot, which she reports she received yesterday. She plans to arrange for an IUD through her primary care provider. --Anticipate discharge today 2. asymmetric leg swelling R>L on exam yesterday. no warmth, erythema, tenderness, pain. Resolved today. --Lower extremity ultrasound with Doppler was negative for DVT DW Dr. Jhonathan Lambert,Jaren Cameron MD R1 September 11, 2016 08:04
[2016-09-11] MEDS ORDERED: IBUP-232 PO (08:39)
[2016-09-11] MEDS ORDERED: ACET1TAB86 PO (08:39)
--- NOTE | 2016-09-11 08:41 | HHI.DCPOC ---
Discharge Care Plan Diagnosis: (1) Vaginal delivery Report Symptoms to Your Doctor -Temperature above 100.5 degrees -Redness, of incision or excessive or foul smelling drainage -Unusual pain or calf pain -Increased vaginal bleeding -Painful or difficulty urinating -Feelings of extreme sadness or anxiety after 2 weeks Goals to Promote Your Health * To prevent worsening of your condition and complications, please follow up with your doctor within 6 weeks. * To maintain your health at the optimal level, please stay hydrated, eat a balanced diet, and exercise regularly. Directions to Meet Your Goals Take your medications as prescribed Follow your dietary instruction Follow activity as directed Ensure plenty of rest for recovery Drink fluids for hydration Keep your appointments as scheduled Take your immunizations and boosters as scheduled If your symptoms worsen call your PCP, if no PCP go to Urgent Care Center or Emergency Room Smoking is Dangerous to Your Health. Avoid second hand smoke Call the 24-hour crisis hotline for domestic abuse at Jaren Lambert MD R1 September 11, 2016 08:41
[2016-09-11 08:45] VITALS: BP 128/69; PULSE 71; RESP 18; TEMP 98.2
[2016-09-11] MEDS: clonazePAM 0.5 MG TAB PO SCH (09:13)
[2016-09-11] MEDS: SERTRALINE HCL 50 MG TAB PO SCH (09:13)
[2016-09-11 11:10] LABS: RAPID PLASMA REAGIN SCREEN NON-REACTIVE (NON-REACTVE)
[2016-09-11] MEDS: DOCUSATE SODIUM 50 MG/SENNA 8.6 MG TAB PO PRN (12:29)
[2016-09-11] MEDS: WITCH HAZEL 50%/GLYCERIN 12.5% 40 PAD JAR TOPICAL PRN (13:23)
[2016-09-13 18:01] LABS: PHENCYCLIDINE URINE NEG (NEG)
[2016-09-13 18:04] LABS: BATH SALTS (MDPV) UR NEG (NEG); ECSTASY (MDMA) UR NEG (NEG); GABAPENTIN UR NEG (NEG); HEROIN (6-ACETYLMORPHINE) UR NEG (NEG); HYDROMORPHONE U NEG (NEG); K2 SPICE UR NEG (NEG); OBMETHADONE UR NEG (NEG); OXYCODONE (PERCODAN) NEG (NEG)
[2016-09-19] MEDS ORDERED: CLON.5 PO (10:24)
[2016-09-19] MEDS ORDERED: ZOLO25TA PO (10:24)
[2016-10-17] MEDS ORDERED: ZOLO25TA PO (15:45)
[2016-10-17] MEDS ORDERED: CLON.5 PO (15:45)
[2016-10-17] MEDS ORDERED: IBUP-232 PO (15:46)
[2016-10-17] MEDS ORDERED: JOLI0.35 PO (15:49)
[2016-10-17] MEDS ORDERED: TRICTAB PO (22:24)
== END 2016-09-11 16:00 | disposition home or self-care (01) | DRG 775 ==
LOC: HOBED 21:20 → H2EB 22:00 → H1EA 09-09 09:59
PROVIDERS: ADMIT Obstetrics & Gynecology; ATTEND Obstetrics & Gynecology
PROC: 10E0XZZ Delivery of Products of Conception, External Approach (ICD-10-PCS; principal; 2016-09-08)
PROC: 3E0R3CZ (ICD-10-PCS; 2016-09-08)
PROC: 00HU33Z Insertion of Infusion Device into Spinal Canal, Percutaneous Approach (ICD-10-PCS; 2016-09-08)
PROC: 0HQ9XZZ Repair Perineum Skin, External Approach (ICD-10-PCS; 2016-09-08)
DX: O42.02 Full-term premature rupture of membranes, onset of labor within 24 hours of rupture (principal); F13.20 Sedative, hypnotic or anxiolytic dependence, uncomplicated; O99.324 Drug use complicating childbirth; O71.4 Obstetric high vaginal laceration alone; F19.20 Other psychoactive substance dependence, uncomplicated; Z37.0 Single live birth; Z3A.39 39 weeks gestation of pregnancy; O69.81X0 Labor and delivery complicated by cord around neck, without compression, not applicable or unspecified; O99.334 Smoking (tobacco) complicating childbirth; F17.210 Nicotine dependence, cigarettes, uncomplicated
CPT/HCPCS: 80074; 80307; 81001; 84112; 85025; 86592; 86703; 86850; 86900; 86901; 90715; 93971; 99281; 99285; G0481; J1050; J2590; J3010; J7120

== ENCOUNTER 2017-05-07 21:08 | Emergency (ER) | payer SELFPAY ==
[~2017-05-07 21:08] MED LIST changes: +ACET325T15 PO; +CLON.5 PO; -CLON0.5T PO; -FERR325T PO; +IBUP-232 PO; +JOLI0.35 PO; +SUBO8MIS SL
[2017-05-07 21:26] VITALS: BP 127/75; PULSE 88; RESP 20; TEMP 97.7; O2SAT 100
--- NOTE | 2017-05-08 00:32 | PD ---
HPI . Chest pain Chief Complaint: Chest Pain Time Seen by Provider: 23:54 Travel History International Travel<30 days: No Contact w/Intl Traveler<30days: No Traveled to known affect area: No History of Present Illness HPI This patient presents with the chief complaint of chest pain. Onset was several months ago. She developed a cold couple of days ago and states that her chest pain is exacerbated by the coughing. She denies fever or sputum production. She rates her pain 4/10. PFSH Past Medical History Hx Anticoagulant Therapy: No Blood Disorders: No Anxiety: Yes Depression: Yes Cancer: No Cardiovascular Problems: No Chemotherapy: No Cerebrovascular Accident: No Diabetes: No Diminished Hearing: No Endocrine: No Gastrointestinal Disorders: No Genitourinary: No Immune Disorder: No Implanted Vascular Access Dvce: No Musculoskeletal: No Neurologic: No Psychiatric: Yes Reproductive: No Respiratory: No Immunizations Current: Yes Radiation Therapy: No Tetanus Vaccination: < 5 Years Influenza Vaccination: No ?: Unknown LMP: WEEK AGO Menopausal: No : 3 Para: 2 Miscarriage: 0 : 0 Past Surgical History Surgical History: No Previous Surgery Abdominal Surgery: No Cardiac Surgery: No Ear Surgery: No Endocrine Surgery: No Eye Surgery: No Genitourinary Surgery: No Gynecologic Surgery: No Hysterectomy: No Neurologic Surgery: No Oral Surgery: No Thoracic Surgery: No Other Surgery: No Social History Alcohol Use: Yes (1-2x weekly ) Tobacco Use: Yes (1 ppd) Substance Use: No Allergies-Medications (Allergen,Severity, Reaction): Coded Allergies: No Known Allergies (Verified , 10/17/16) Reported Meds & Prescriptions Reported Meds & Active Scripts Active Reported Suboxone Sublingual Film (Buprenorphine-Naloxone Sublingual Film) 8-2 Mg Film 1 Film SL BID Unique ID number required: Review of Systems Except as stated in HPI: all other systems reviewed are Neg General / Constitutional: No: Fever, Chills Cardiovascular: Positive: Chest Pain or Discomfort Respiratory: Positive: Cough Physical Exam Narrative GENERAL: Patient is awake and alert and in no acute distress. SKIN: warm/dry. Normal color and turgor. HEAD: Normocephalic. Atraumatic. EYES: Pupils equal and round. No scleral icterus. No injection or drainage. ENT: No nasal bleeding or discharge. Mucous membranes pink and moist. NECK: Trachea midline. Full range of motion without pain.. CARDIOVASCULAR: Regular rate and rhythm. Heart sounds are normal. RESPIRATORY: No accessory muscle use. Clear to auscultation. Breath sounds equal bilaterally. GASTROINTESTINAL: Abdomen soft. Nontender. Bowel sounds present. Nondistended. MUSCULOSKELETAL: No obvious deformities. NEUROLOGICAL: Awake and alert. No obvious cranial nerve deficits. Motor grossly within normal limits. Normal speech. PSYCHIATRIC: Appropriate mood and affect; insight and judgment normal. Data Data Last Documented VS Vital Signs Date Time Temp Pulse Resp B/P (MAP) Pulse Ox O2 Delivery O2 Flow Rate FiO2 05/07/17 21:26 97.7 88 20 127/75 (92) 100 Orders Orders Electrocardiogram (05/07/17 21:35) [facility] Medical Decision Making Medical Screen Exam Complete: Yes Emergency Medical Condition: Yes Differential Diagnosis Differential diagnosis includes but is not limited to viral respiratory illness , bronchitis, pneumonia, allergies, CHF, asthma/COPD. Narrative Course This patient presents with a 2 day history of cough. She has not taken anything for it. She has not been running a fever. She has not had any sputum production. In addition, she complains with a several month history of chest pain which is exacerbated by coughing. This patient is under the impression that she needs an antibiotic. She and her significant other reports that the children have been ill with similar illnesses and that they went to the business solutions director and were given a prescription for amoxicillin. I have explained to the patient and her significant other that this is a viral infection and that antibiotics will not help. They queried as to whether or not an upper respiratory infection needed antibiotics. I explained to them that upper respiratory infections are viral and do not require antibiotics. Diagnosis Primary Impression: Upper respiratory infection Qualified Codes: J06.9 - Acute upper respiratory infection, unspecified Additional Impression: Chest wall pain Patient Instructions: Chest Wall Pain (ED), General Instructions, Upper Respiratory Infection (DC) Additional Instructions: I recommend the use of a Neti Pot. You may use a nasal spray such as Afrin for up to 3 days as needed for nasal congestion. You may take an lrtd-keo-jcyksmb antihistamine such as Zyrtec, Meghan or Claritin as needed for runny secretions. You may take pseudoephedrine as needed for congestion. You will need to sign for this at the pharmacy. You may take plain Mucinex, 1200 mg twice a day as needed for thick secretions. You may take a cough syrup such as Delsym as needed for cough. Motrin as needed for fever and body aches. Throat lozenges/sprays as needed for sore throat. Warm salt water gargles for sore throat. Hot tea with lemon and honey also helps soothe a sore throat. Disposition: 01 DISCHARGE HOME Condition: Stable Tika Hope MD May 08, 2017 00:32
--- NOTE | 2017-05-08 12:16 | EKG ---
Date Performed: 05/07/2017 Time Performed: 21:35:17 PTAGE: 26 years EKG: Sinus rhythm POSSIBLE RIGHT VENTRICULAR CONDUCTION DELAY BORDERLINE ECG PREVIOUS TRACING : 08/08/2016 11.25 Since the prior tracing, there has been no significant martin DOCTOR: Adrian Laguerre Interpretating Date/Time 05/08/2017 12:16:15
== END 2017-05-08 01:03 | disposition home or self-care (01) ==
LOC: PHED 21:08
DX: J06.9 Acute upper respiratory infection, unspecified (principal); F17.200 Nicotine dependence, unspecified, uncomplicated
CPT/HCPCS: 93005; 99283

== ENCOUNTER 2017-05-23 22:36 | Emergency (ER) | payer SELFPAY ==
[~2017-05-23] VITALS: Ht 162.6 cm; Wt 68.0 kg
[~2017-05-23 22:36] MED LIST changes: -ACET325T15 PO; -CLON.5 PO; -IBUP-232 PO; -JOLI0.35 PO; -TRICTAB PO; -ZOLO25TA PO
[2017-05-23 22:40] VITALS: BP 116/65; PULSE 140; RESP 16; TEMP 98; O2SAT 98
== END 2017-05-24 01:09 | disposition left against medical advice (07) ==
LOC: NED 22:36
DX: Z04.3 Encounter for examination and observation following other accident (principal)
CPT/HCPCS: 99281

== ENCOUNTER 2017-05-24 12:59 | Emergency (ER) | payer SELFPAY ==
[~2017-05-24] VITALS: Ht 162.6 cm; Wt 70.0 kg
[2017-05-24 13:01] VITALS: BP 124/70; PULSE 104; RESP 16; TEMP 98.3; O2SAT 97
--- NOTE | 2017-05-24 14:45 | PD ---
HPI Chief Complaint: Pain: Acute or Chronic Time Seen by Provider: 14:32 Travel History International Travel<30 days: No Contact w/Intl Traveler<30days: No Traveled to known affect area: No History of Present Illness HPI This is a 26-year-old female who presents for evaluation of right knee pain. She reports that yesterday she slipped and fell, hitting her right knee against the ground. Since then she has had pain in the anterior and posterior aspect of the right knee which is a stiffening type of pain which is worse when her knee is fully extended. There is associated bruising to the anterior aspect of the right knee. Symptoms have persisted today which prompted evaluation. She denies any other injuries and she has no other complaints at this time. PFSH Past Medical History Hx Anticoagulant Therapy: No Blood Disorders: No Anxiety: Yes Depression: Yes Cancer: No Cardiovascular Problems: No Chemotherapy: No Cerebrovascular Accident: No Diabetes: No Diminished Hearing: No Endocrine: No Gastrointestinal Disorders: No Genitourinary: No Immune Disorder: No Implanted Vascular Access Dvce: No Musculoskeletal: No Neurologic: No Psychiatric: Yes Reproductive: No Respiratory: No Immunizations Current: Yes Radiation Therapy: No ?: Unknown Menopausal: No : 3 Para: 2 Miscarriage: 0 : 0 Past Surgical History Abdominal Surgery: No Cardiac Surgery: No Ear Surgery: No Endocrine Surgery: No Eye Surgery: No Genitourinary Surgery: No Gynecologic Surgery: No Hysterectomy: No Neurologic Surgery: No Oral Surgery: No Thoracic Surgery: No Other Surgery: No Social History Alcohol Use: Yes (monthly) Tobacco Use: Yes (1 ppd) Substance Use: No (Clean over a year) Allergies-Medications (Allergen,Severity, Reaction): Coded Allergies: No Known Allergies (Verified Adverse Reaction, Unknown, 05/24/17) Reported Meds & Prescriptions Reported Meds & Active Scripts Active Reported Suboxone Sublingual Film (Buprenorphine-Naloxone Sublingual Film) 8-2 Mg Film 1 Film SL BID Unique ID number required: Review of Systems Musculoskeletal: Positive: Pain, No: Limited ROM Skin: Positive Other (positive for bruising) Neurologic: No: Weakness Physical Exam Narrative GENERAL: Well-developed well-nourished female in no acute distress ambulatory in the ED. SKIN: Warm and dry. There is focal ecchymosis to the anterior right knee. HEAD: Atraumatic. Normocephalic. EYES: Pupils equal and round. No scleral icterus. No injection or drainage. CARDIOVASCULAR: Regular rate and rhythm. No murmur appreciated. RESPIRATORY: No accessory muscle use. Clear to auscultation. Breath sounds equal bilaterally. MUSCULOSKELETAL: Skin as noted above with isolated tenderness to palpation to the anterior right knee. There is no joint effusion. There is no obvious laxity on anterior posterior stress. There is no range of motion limitation. Dorsalis pedis pulses are intact bilaterally. NEUROLOGICAL: Awake and alert. Data Data Last Documented VS Vital Signs Date Time Temp Pulse Resp B/P (MAP) Pulse Ox O2 Delivery O2 Flow Rate FiO2 05/24/17 13:01 98.3 104 16 124/70 (88) 97 Orders Orders Knee, Ltd (1 Or 2vws) (05/24/17 ) Ed Discharge Order (05/24/17 15:02) [facility] Medical Decision Making Medical Screen Exam Complete: Yes Emergency Medical Condition: Yes Medical Record Reviewed: Yes Differential Diagnosis Contusion, prepatellar bursitis, ligamentous disruption, meniscal disruption, strain Narrative Course His examination is reassuring. She appears to have an isolated contusion to the anterior aspect of the right knee. X-ray imaging was obtained in triage which is negative for acute process. Recommended supportive care including rest , ice, follow-up with primary care physician in 2 weeks. If symptoms persist outpatient MRI imaging may be warranted. She verbalizes understanding. Diagnosis Primary Impression: Contusion of right knee Additional Instructions: Ice the affected area several times a day 15 minutes at a time until bruising is resolved. Avoid strenuous activity. Follow-up with primary care physician in 2 weeks for recheck. If symptoms persist outpatient MRI imaging may be warranted. Med/Other Pt SpecificInfo: No Change to Meds Disposition: 01 DISCHARGE HOME Condition: Stable Gavin Bennett May 24, 2017 14:45
--- NOTE | 2017-05-24 14:59 | RADRPT ---
EXAM DATE/TIME: 05/24/2017 13:57 [facility] COMPARISON: No previous studies available for comparison. INDICATIONS : Overall right knee pain after fall. MEDICAL HISTORY : Hepatitis C. Depression. Anxiety. Tobacco use. SURGICAL HISTORY : None. ENCOUNTER: Initial ACUITY: 2 days PAIN SCORE: 6/10 LOCATION: Right knee FINDINGS: Two view examination of the right knee demonstrates no evidence of fracture or dislocation. Bony min eralization is normal. The suprapatellar soft tissues have a normal configuration. CONCLUSION: Negative for fracture or dislocation. Follow up in 7-10 days is suggested if symptoms persist. Celestino Perez MD FACR on May 24, 2017 at 14:56 Board Certified Radiologist. This report was verified electronically.
== END 2017-05-24 15:09 | disposition home or self-care (01) ==
LOC: NEPD 12:59
DX: S80.01XA Contusion of right knee, initial encounter (principal); W01.0XXA Fall on same level from slipping, tripping and stumbling without subsequent striking against object, initial encounter; F41.9 Anxiety disorder, unspecified; F32.9 Major depressive disorder, single episode, unspecified; F17.200 Nicotine dependence, unspecified, uncomplicated
CPT/HCPCS: 73560; 99283